=== PATIENT | female | born 1950 ===

== ENCOUNTER 2022-05-10 15:22 | Inpatient (IN) | payer OTHER ==
--- NOTE | 2022-05-10 19:18 | R.PREADM ---
PRE-ADMISSION SCREENING FORM SCREENING DATE AND TIME 05/10/2022 08:18 (CDT) ANTICIPATED REHAB ADMISSION DATE 05/11/2022 REFERRING FACILITY [facility] REFERRAL DATE AND TIME 05/09/2022 17:18 (CDT) REFERRAL ROOM# 213 M ACUTE ADMIT DATE 05/05/2022 Previous Rehabilitation(s): No. ACUTE PEDIATRIC PHYSICAL THERAPIST/DC HYDROPULPER Bharti Benitez ATTENDING PHYSICIAN Dr. Kadeem Reinoso REFERRING PHYSICIAN Dr. Kadeem Reinoso REHAB FACILITY [facility] CLINICAL LIAISON Nagi Kauffman PHYSICIAN REVIEWER Dr. Harsh Nava M.D. MR# [id number] NAME DEEPAK LEE ADDRESS [address] [place] [address] PHONE [facility] [id number] DATE OF 1950 AGE 71 SSN# [id number] GENDER female MARITAL STATUS white ADMIT FROM 02 - [facility] LIVING SETTING 01 - Home (private home/apt. board/care, assisted living, skilled nursing, transitional living) HOME TYPE AND DETAILS Type of home: single family house # of levels in the residence: 1 # of steps within the residence: 0 # of steps to enter the residence: 1 PRE-HOSPITAL LIVING WITH Family/Relatives FAMILY SUPPORT [employer] PHONE PRIMARY FAMILY CONTACT ON ADM.? no IS PRIMARY FAMILY CONTACT AUTH. REP.? no PHONE 1ST CONTACT ON ADM. no IS 1ST CONTACT AUTH. REP.? no PHONE 2ND CONTACT ON ADM.? no PATIENT EMPLOYMENT STATUS Retired (for age) PATIENT EMPLOYER No Employer PAYOR INFORMATION: 1ST PAYOR NAME Abdirahman Medicare 1ST PAYOR PHONE 1ST PAYOR INJURY/ILLNESS DUE TO ACCIDENT? No ANOTHER CONSTITUTION PARTY RESPONSIBLE? No PRIMARY REHAB/ACUTE DIAGNOSIS: Acute diastolic (congestive) heart failure (I50.31) ONSET DATE 05/05/2022 REHAB IMPAIRMENT CATEGORY (MACY): 14 Cardiac does NOT meet 60% rule PRIMARY DIAGNOSIS-RELATED SURGERIES: No surgeries related to the primary diagnosis were performed. COMORBID REHAB/ACUTE DIAGNOSES: - Tier 3 Morbid (severe) obesity due to excess calories (E66.01) - Non-Tiered Cellulitis of unspecified part of limb (L03.119) Acute diastolic (congestive) heart failure (I50.31) Lymphedema, not elsewhere classified (I89.0) Essential (primary) hypertension (I10) Constipation, unspecified (K59.00) Acute pulmonary edema (J81.0) Unspecified open wound, unspecified lower leg, initial encounter (J44.921W) Obstructive sleep apnea (adult) (pediatric) (G47.33) INTERVENTIONS: - CHF Daily weights will be obtained Regular assessment of patient vitals. Monitoring of patient symptoms and medications to be administered as per physician order. - Lymphedema Manual Lymphatic drainage to be performed. Use of daily short stretch compression wraps to reduce volume of LEs. Monitoring of condition and medications administered as per physician order - Cellulitis Daily monitoring of involved area. Medicate as indicated by physician - HTN Blood pressure will be regularly assessed and medications administered as per physician recommendatio ns. - LE Wounds Daily wound dressing changes. Maintaining a clean healthy environment to promote wound healing Monitoring for signs and symptoms of infection. - Pulmonary Edema Regular vitals checks Assessment of lung sounds Chest X-Rays as warranted Monitoring of condition and medications administered as per physician. - Weakness Daily therapy services to enhance patient's functional strength and abilities. - Constipation Monitor and manage appropriately via conservative and medications as needed. RISK FOR COMPLICATIONS: - Pain Clinical staff will assess patient's pain level every shift per protocol to monitor for pain manageme nt effectiveness Educate patient on pain management strategies - Skin Breakdown pt currently has multiple wounds on body that require management to prevent infection Nursing will assess skin daily using assessment tool and will place on Skin Breakdown Precautions as Indicated per protocol - UTI Monitor for frequency, burning, discomfort, or incontinence - Falls Educated pt on fall prevention strategies to reduce/eliminate fall risk Patient will be evaluated for Fall Precautions and will be placed on Fall Precautions as indicated pe r protocol. - DVT Administer anti-coagulants as indicated by physician and monitor for effectiveness. Mobility training and regular exercise - Infection antibiotic therapy as indicated by physician pt has multiple LE wounds, which require daily wound dressing changes Monitoring of wounds for signs and symptoms of infection SUMMARY OF ACUTE HOSPITALIZATION: Pt. is a 71 yo Right-handed white female. On 05/05/2022 she was admitted to [facility] with diagnosis Acute diastolic (c ongestive) heart failure (I50.31). Her impairment category is Cardiac 09 - Cardiac Disorders (09). Pre-morbidly, Pt. was independent/mod-I in Locomotion, Safety Awareness, Social Cognition, Balance, T ransfers Control, Self-Care, Sphincter Control, and Communication; and she had good Endurance. Currently, she has deficits of Locomotion, Balance, Transfers Control, Sphincter Control, Self-Care, and Endurance. Pt. is now referred to [facility] for acute in-patient rehabilitation in order to maximize patient's functional independence in activities of daily living, strength, ROM, and mobi lity. Patient has realistic goal of being discharged at assistance level Isela-to-sup to reside at Home with Family/Relatives. PAST MEDICAL HISTORY Acute diastolic (congestive) heart failure (I50.31) Acute pulmonary edema (J81.0) Cellulitis of unspecified part of limb (L03.119) Constipation, unspecified (K59.00) Essential (primary) hypertension (I10) Lymphedema, not elsewhere classified (I89.0) Morbid (severe) obesity due to excess calories (E66.01) Obstructive sleep apnea (adult) (pediatric) (G47.33) Unspecified open wound, unspecified lower leg, initial encounter (S70.743E) PAST SURGICAL HISTORY: Appendectomy Cholecystectomy Hysterectomy MEDICATION ALLERGIES: No Known Drug Allergies (NKDA) ENVIRONMENTAL ALLERGIES: - Substance Allergies None Known - Other Allergies None Known CODE STATUS: Full code WEIGHT/HEIGHT/BMI: WEIGHT 419 lbs HEIGHT 5' 6" BMI 67.6 DIET: - Diet Type Regular - Diet - Solid Texture Regular - Diet - Liquid Texture Regular - Tube Feed N/A SKIN DIAGRAM: Skin Tear on Left lower leg; extent - 3.2cm x 3.0cm; stage - NS(Not Stageable). Treatment - Change dr jaime daily after cleansing of wound with sterile saline. Skin Tear on Right lower leg; extent - 2.5cm x 2.5cm; stage - NS(Not Stageable). Treatment - Change d ressing daily after cleansing of wound with sterile saline. Skin Tear on Right lower leg; extent - 3.5cm x 3.5cm; stage - NS(Not Stageable). Treatment - Change d ressing daily after cleansing of wound with sterile saline. REVIEW OF SYSTEMS: - Gen Alert and awake Lying in bed No apparent distress Oriented to: person, time, and place - Vital Signs Temperature: 98.3 F SBP/DBP: 147/72 Pulse: 86 Resp: 20 Vital signs stable, afebrile - Skin Multiple skin tears on bilateral LEs - CVS RRR VITAL SIGNS Temperature: 98.3 F SBP/DBP: 147/72 Pulse: 86 Resp: 20 Vital signs stable, afebrile MEDICATIONS/TREATMENT: Other- See attached MAR (Medication Administration Record). CURRENT SPHINCTER CONTROL: Pre-hospital bladder status: unspecified # of bladder accidents in the last 7 days prior to screenin Pre-hospital bowel status: unspecified # of bowel accidents in the last 7 days prior to screenin Last Bowel Movement Date: 05/09/2022 CURRENT LOCOMOTION STATUS: distance walked 2 feet DETAILED CURRENT FUNCTIONAL STATUS: - Bladder accident frequency: UNK - No information - Bowel accident frequency: UNK - No information - Walking score based on distance walked: 0(N/A) score based on distance walked: 1(<=50ft) - Wheelchair score based on distance traveled: 0(N/A) QI SCORES: - Self-Care A. Eating 05-Setup or clean-up assistance B. Oral hygiene 05-Setup or clean-up assistance C. Toileting hygiene 02-Substantial/maximal assistance E. Shower/bathe self 02-Substantial/maximal assistance F. Upper body dressing 03-Partial/moderate assistance G. Lower body dressing 01-Dependent H. Putting on/taking off footwear 01-Dependent - Mobility A. Roll left and right 02-Substantial/maximal assistance B. Sit to lying 02-Substantial/maximal assistance C. Lying to sitting on side of bed 02-Substantial/maximal assistance D. Sit to stand 03-Partial/moderate assistance E. Chair/itp-hy-vyahm transfer 02-Substantial/maximal assistance F. Toilet transfer 02-Substantial/maximal assistance G. Car transfer 88-Not attempted due to medical condition or safety concerns I. Walk 10 feet 88-Not attempted due to medical condition or safety concerns J. Walk 50 feet with two turns 88-Not attempted due to medical condition or safety concerns K. Walk 150 feet 88-Not attempted due to medical condition or safety concerns L. Walking 10 feet on uneven surfaces 88-Not attempted due to medical condition or safety concerns M. 1 step (curb) 88-Not attempted due to medical condition or safety concerns N. 4 steps 88-Not attempted due to medical condition or safety concerns O. 12 steps 88-Not attempted due to medical condition or safety concerns P. Picking up object 88-Not attempted due to medical condition or safety concerns R. Wheel 50 feet with two turns S. Wheel 150 feet - Bladder and Bowel Bladder continence Bowel continence - Endurance Poor - Balance Poor - Safety Awareness Fair CURRENT FUNC. DEFICITS: Self-Care, Mobility, Endurance, Balance, and Safety Awareness HISTORY OF FALLS. HAS THE PATIENT HAD TWO OR MORE FALLS IN THE PAST YEAR OR ANY FALL WITH INJURY IN T HE PAST YEAR?: Unknown PRIOR SURGERY. DID THE PATIENT HAVE MAJOR SURGERY DURING THE 100 DAYS PRIOR TO ADMISSION?: No THERAPY NOTES FROM ACUTE CARE: Attached. SPECIAL NEEDS: - Safety Concerns Skin breakdown precautions needed due to skin breakdown risk PATIENT NEEDS ACTIVE AND ONGOING THERAPEUTIC INTERVENTION OF MULTIPLE THERAPY DISCIPLINES, INCLUDING: - Dietary and Nutrition Adequate Nutrition. Nutritional Education. Nutritional Supplements. - Occupational Therapy Cognitive Retraining. Patient needs Occupational Therapy for a daily minimum of 1.5 hours at least 5 out of 7 days, to improve Activities of Daily Living, including: Eating, Grooming, Bathing, Dressing, Toileting, Toilet Transfers, Community Reintegration, Higher functional activities, Adaptive Equipme nt, Splinting, Household Tasks, and Other activities as determined. Visual Perceptual Training. - Speech Therapy Cognitive Training. Expressive Language Skills. Memory Strategies. Patient needs Speech Therapy for a daily minimum of 0 hours at least 0 out of 0 days, to improve: Swallowing, Cognition, Language Skill s, and Compensatory Strategies. Receptive Language Skills. Speech Intelligibility Training. - Physical Therapy Patient needs Physical Therapy for a daily minimum of 1.5 hours at least 5 out of 7 days, to improve: Mobility, Strengthening, Transfers, Stretching, ROM, Endurance, Ability to manage stairs, Gait, and Balance. PATIENT NEEDS CLOSE MEDICAL SUPERVISION BY A REHABILITATION PHYSICIAN FOR: Coordination of Treatment Team Medical and Co-Morbidity Management DVT Management Bowel and Bladder Management Wound Care Respiratory/Airway Management Pain Management PATIENT REQUIRES 24X7 REHAB NURSING FOR MEDICAL AND FUNCTIONAL MGT. OF THE FOLLOWING DEFICITS: Disease Management Medication Management Patient requires 24x7 Rehabilitation Nursing for: Pain Issues, Identifying and preventing risk factor s, Monitoring and reporting current medical conditions, Assisting with ambulation and transfer, Chilango ting with all ADL-s, Teaching patients about disease process and medications, Family teaching, Provid ing safe environment, Bowel and Bladder Issues, Skin Integrity, and Medication Management Patient/Family Education Providing Safe Environment Skin Integrity PATIENT REQUIRES INTENSIVE, COORDINATED INTERDISCIPLINARY APPROACH TO REHAB: Arranging Home Equipment/Services Discharge Planning Family Intervention/Training Patient needs Dietary and Nutrition Services for: Adequate Nutrition, Nutritional Supplements, and Nu tritional Education Patient needs Fire Protection Specialist and/or Case Management for: Discharge Planning, Arranging Home Equipmen t or Services, and Family Interventions Fire Protection Specialist/Case Management PATIENT REHAB POTENTIAL: Sara LEE is able and expected to receive 3 hours of individualized therapy daily on at least 5 of ev emili 7 days Sara LEE'anh prognosis for significant practical improvement within a reasonable period of time appear s Good Expected level of measurable improvement will be of a practical value to Sara LEE's functional capac ity or adaptations to impairments Has a viable Discharge Plan Medically appropriate; condition is sufficiently stable to participate in intensive rehab program DISCHARGE PLAN: - Estimated Length of Stay (days) 10. - Consensus on plan Discharge plan has been discussed with primary caregiver. Patient/Family is in agreement with the glendy n. Primary caregiver is in agreement with the plan. - Patient/Family Goals Return home independently. - Planned Living Setting Upon Discharge Home, to live with Family/Relatives. Transitional Living. RECOMMENDED CARE LEVEL: IRF RECOMMENDATION DETAILS: Recommended Admission to Comprehensive Rehabilitation Program to Increase Functional [place] SCREENER'S COMPLETENESS CONFIRMATION: - Screening Confirmation The patient data collection on this preadmission screening form is finished PHYSICIANS REVIEW AND ADMISSION DETERMINATION Admit - Based on my review of the Pre-Admission Screening results, in my medical judgment and experie nce, I concur with the findings and recommend admission to [facility], as this patient requires an IRF level of care. SIGNATURE PANEL: Rod Mill Tender - [electronically] signed by Nagi Kauffman PT on 05/10/2022 at 16:37 (CDT) Clinical Liaison - [electronically] signed by Dr. Harsh Nava M.D. on 05/10/2022 at 19:18 (CDT) Physician Reviewer - [electronically] signed by Dr. Harsh Nava M.D. on 05/10/2022 at 19:18 (CDT )
[2022-05-11 03:36] LABS: Urine Appearance Clear (Clear); Urine Bilirubin Negative (Negative); Urine Blood Negative (Negative); Urine Color Yellow (Yellow); Urine Glucose Negative (Negative); Urine Protein Negative (Negative); Urine Specific Gravity 1.015 (1.005-1.030); Urine Urobilinogen 0.2 mg/dL (0.2-1.0); Urine pH 6.5 (5.0-7.0)
[2022-05-11 03:48] LABS: Urine Amorphous Sediment 1+ /HPF (NONE SEEN); Urine Bacteria 20-50 /HPF (<20); Urine Mucus 1+ /HPF (NONE SEEN); Urine RBC <5 /HPF (NONE SEEN)
[2022-05-11 07:33] LABS: Absolute Lymphocytes (CBC) 0.8 K/uL (0.7-4.9); Hematocrit 31.5 % (36.0-45.0); Lymphocytes % 12.3 % (15.3-44.8); MCV 94.7 fL (80-100); MPV 7.7 fL (7.6-11.3); RBC Red Blood Cell Count 3.33 M/uL (3.86-4.86)
[2022-05-11 07:50] LABS: Magnesium 2.3 mg/dL (1.8-2.4); Potassium 3.7 mmol/L (3.5-5.1); Prealbumin 9.2 mg/dL (20-40)
[2022-05-11] MEDS ORDERED: CODEINE 30MG/APAP 300MG TAB PO SCH (08:00)
[2022-05-11] MEDS: ASCORBIC ACID 500 MG TABLET PO SCH ×2 (08:00→20:37)
[2022-05-11] MEDS: MULTIVIT W/ MINERAL TAB PO SCH (08:43)
[2022-05-11] MEDS: AMOX/K CLAV 875 MG TAB PO SCH ×2 (08:43→20:37)
[2022-05-11] MEDS: FAMOTIDINE 20 MG TAB PO SCH (08:43)
[2022-05-11] MEDS: ISOSORBIDE MONO SR 30 MG TAB PO SCH (08:44)
[2022-05-11] MEDS: APIXABAN 5 MG TABLET PO SCH ×2 (08:44→20:37)
[2022-05-11] MEDS: ASPIRIN EC 81 MG TAB PO SCH (08:44)
[2022-05-11] MEDS: METOPROLOL XL 25 MG TAB PO SCH (08:48)
[2022-05-11] MEDS: MONTELUKAST 10 MG TAB PO SCH (08:48)
[2022-05-11] MEDS: CETIRIZINE HCL 5 MG TABLET PO PRN (08:48)
[2022-05-11] MEDS: POTASSIUM CL SA 10 MEQ TAB PO SCH (08:49)
[2022-05-11] MEDS: MUPIROCIN 2% OINT 22GM TUBE TOP SCH ×2 (08:50→20:37)
[2022-05-11] MEDS: NYSTATIN PWDR 100000 UNIT/GM TOP SCH ×2 (08:50→20:37)
[2022-05-11] MEDS: LINEZOLID 600 MG TAB PO SCH ×2 (08:51→20:36)
[2022-05-11] MEDS ORDERED: FUROSEMIDE 40 MG TABLET PO SCH (09:00)
[2022-05-11 12:26] LABS: Blood Gas Oxyhemoglobin 91.9 % (94-97); Blood O2 Saturation 94.5 % (92-98.5)
--- NOTE | 2022-05-11 12:51 | RAD REPORT ---
EXAM DESCRIPTION: Kelsi Single View05/11/2022 12:16 pm CLINICAL HISTORY: Chest pain COMPARISON: 2016 FINDINGS: Lungs are mildly hazy. The heart is normal size IMPRESSION: Lungs are mildly hazy. Mild bilateral pneumonia suspected. Probably less likely the hazi ness is secondary to overlying soft tissue
--- NOTE | 2022-05-11 14:43 | P.HP ---
Certification for Inpatient Patient admitted to: Inpatient With expected LOS: >2 Midnights Practitioner: I am a practitioner with admitting privileges, knowledge of patient current condition, hospital course, and medical plan of care. Services: Services provided to patient in accordance with Admission requirements found in Title 42 Section 412.3 of the Code of Federal Regulations Patient History Date of Service: 05/11/22 Reason for admission: WEAKNESS History of Present Illness: SHE WENT TO [facility] FOR CHRONIC LYMPHEDEMA. THEY SENT HER HER FOR REHAB. SHE DOES NOT HAVE ANY ACUTE COMPLIANTS. SHE WAS FOUND TO HAVE COVID ON ADMISSION HERE. SHE DOESNOT KNOW WHAT WAS OVER THERE. I HAVE NOT SEEN HER FOR MORE THAN A YEAR BEFORE TODAY. Allergies Latex, Natural Rubber Allergy (Intermediate, Verified 05/11/22 01:27) Rash meperidine [From Demerol] Allergy (Intermediate, Verified 03/13/16 21:56) Hives/Rash Home medications list reviewed: Yes Home Medications: Nebivolol HCl [Bystolic] 5 mg PO BEDTIME 03/13/16 Olmesartan/Hydrochlorothiazide [Benicar Hct 40-25 mg Tablet] 40 mg PO DAILY 03/13/16 Furosemide [Lasix*] 20 mg PO DAILY PRN #30 tab 03/15/16 Etodolac [Lodine Xl] 500 mg PO DAILY PRN 06/19/16 Multivitamin [Daily Multivitamin] 1 each PO DAILY 06/19/16 - Past Medical/Surgical History Has patient received pneumonia vaccine in the past: Yes Diabetic: No -: HTN -: osteoarthritis -: LYMPHEDEMA -: Morbid obesity -: Diastolic Dysfunction -: seasonal allergies -: cholecystectomy -: hysterectomy -: fibroid tumor removal -: appendectomy - Family History Father -: Cancer Notes: prostate Mother -: Other (see notes) Notes: infected wound on her lower back - Social History Smoking Status: Never smoker Alcohol use: No CD- Drugs: No Caffeine use: Yes Place of Residence: Home Physical Examination - Vital Signs Temperature: 97.4 F Blood Pressure: 142/73 Pulse: 105 Respirations: 18 Pulse Ox (%): 93 - Physical Exam General: Mild distress, Obese HEENT: Atraumatic, PERRLA, Mucous membr. moist/pink, EOMI, Sclerae nonicteric Neck: Supple, 2+ carotid pulse no bruit, No LAD, Without JVD or thyroid abnormality Respiratory: Clear to auscultation bilaterally, Normal air movement Cardiovascular: Regular rate/rhythm, Normal S1 S2, Edema (SEVERE LYMPHEDEMA.) Gastrointestinal: Normal bowel sounds, No tenderness Musculoskeletal: No tenderness Integumentary: No rashes Neurological: Normal gait, Normal speech, Normal strength at 5/5 x4 extr, Normal tone, Normal affect Lymphatics: No axilla or inguinal lymphadenopathy - Studies Laboratory Data (last 24 hrs) 05/11/22 07:08: Sodium 142, Potassium 3.7, BUN 19 H, Creatinine 0.98, Glucose 98, Magnesium 2.3 05/11/22 07:08: WBC 6.4, Hgb 10.3 L, Hct 31.5 L, Plt Count 210 Assessment and Plan - Problems (Diagnosis) (1) Hypercapnemia Current Visit: Yes Status: Chronic Plan: NEED TO REDUCE CO2 BUT WILL BE DIFFICULT SHE IS MORBIDLY OBESE. (2) Lymphedema Current Visit: Yes Status: Acute (3) Pneumonia due to COVID-19 virus Current Visit: Yes Status: Acute Plan: CONSULT DR. BURKETT. MAY NEED COVID RX. PROGNOSIS GUARDED. NOT SURE WHY SHE IS ON TWO ABX. WILL FIND OUT. - Advance Directives Does patient have a Living Will: No Does patient have a Durable POA for Healthcare: No
[2022-05-11 16:03] LABS: Blood Gas Oxyhemoglobin 80.7 % (94-97); Blood O2 Saturation 82.9 % (92-98.5)
--- NOTE | 2022-05-11 16:17 | P.CNS ---
Date of Consult: 05/11/22 Reason for Consult: Hypoxemia hypercapnia coronavirus positive Chief Complaint: Respiratory failure History of Present Illness: Patient is 71 years of age was transferred from [facility] she has chronic lymphedema with episodic cellulitis feels a little weak was diuresed patient was found to be positive for coronavirus and also hypoxic and hypercapnic denies any previous history of pulmonary complaints has never smoked no prior history of obstructive sleep apnea Allergies Latex, Natural Rubber Allergy (Intermediate, Verified 05/11/22 15:34) Rash meperidine [From Demerol] Allergy (Intermediate, Verified 05/11/22 15:34) Hives/Rash Home Medications: Nebivolol HCl [Bystolic] 5 mg PO BEDTIME 03/13/16 Olmesartan/Hydrochlorothiazide [Benicar Hct 40-25 mg Tablet] 40 mg PO DAILY 03/13/16 Furosemide [Lasix*] 20 mg PO DAILY PRN #30 tab 03/15/16 Etodolac [Lodine Xl] 500 mg PO DAILY PRN 06/19/16 Multivitamin [Daily Multivitamin] 1 each PO DAILY 06/19/16 - Past Medical/Surgical History Diabetic: No -: HTN -: osteoarthritis -: LYMPHEDEMA -: Morbid obesity -: Diastolic Dysfunction -: seasonal allergies -: cholecystectomy -: hysterectomy -: fibroid tumor removal -: appendectomy - Family History Father Medical History: Cancer Notes: prostate Mother Medical History: Other (see notes) Notes: infected wound on her lower back - Social History Smoking Status: Never smoker Alcohol use: No CD- Drugs: No Caffeine use: Yes Place of Residence: Home Review of Systems 10-point ROS is otherwise unremarkable Integumentary: As per HPI Physical Examination Temp Pulse Resp BP Pulse Ox 97.4 F 103 H 18 133/65 93 05/11/22 14:47 05/11/22 15:49 05/11/22 14:47 05/11/22 15:49 05/11/22 14:47 General: Alert, In no apparent distress, Oriented x3 HEENT: Atraumatic Neck: Supple Respiratory: Clear to auscultation bilaterally, Diminished Cardiovascular: Normal S1 S2, Edema (Gross lymphedema of lower extremities) Laboratory Data (last 24 hrs) 05/11/22 07:08: Sodium 142, Potassium 3.7, BUN 19 H, Creatinine 0.98, Glucose 98, Magnesium 2.3 05/11/22 07:08: WBC 6.4, Hgb 10.3 L, Hct 31.5 L, Plt Count 210 - Problems (1) Chronic respiratory failure with hypoxia and hypercapnia Current Visit: Yes Status: Acute Plan: Post likely patient has obesity hypoventilation syndrome he denies any symptoms of obstructive sleep apnea no prior history of pulmonary complaints he is never smoked patient's bicarbonate is elevated however hypercapnia may be secondary to elevated bicarbonate suspect is secondary to aggressive diuresis I doubt if she has coronavirus pneumonia. Loop diuretics probably benefit from an outpatient sleep study to see if she qualifies for CPAP or BiPAP no treatment for coronavirus necessary
--- NOTE | 2022-05-11 19:43 | R.HP ---
HISTORY AND PHYSICAL FACILITY: [facility] ENCOUNTER DATE AND TIME: 05/11/2022 19:37 (CDT) MR#: [id number] NAME DEEPAK LEE ADDRESS: [address] [place] [address] CITY: [place]IP [address] PHONE: DATE OF : 1950 AGE: 71 SSN# [id number] GENDER: Female MARITAL STATUS White PRE-HOSPITAL LIVING SETTING 01 - Home (private home/apt. board/care, assisted living, snf, transitional living) PRE-HOSPITAL LIVING WITH Family/Relatives ENCOUNTER PHYSICIAN: Dr. Harsh Nava M.D. REFERRING DOCTOR: Dr. Kadeem Reinoso DATE OF ADMISSION: 05/11/2022 00:12 (CDT) REFERRING FACILITY [facility] HOME TYPE AND DETAILS: Type of home: single family house # of levels in the residence: 1 # of steps within the residence: 0 # of steps to enter the residence: 1 ONSET DATE: 05/05/2022 PRIMARY DIAGNOSIS-RELATED SURGERIES: No surgeries related to the primary diagnosis were performed. SECONDARY/COMORBID DIAGNOSES (TIERED): - Tier 3 Morbid (severe) obesity due to excess calories (E66.01) - Non-Tiered Cellulitis of unspecified part of limb (L03.119) Acute diastolic (congestive) heart failure (I50.31) Lymphedema, not elsewhere classified (I89.0) Essential (primary) hypertension (I10) Constipation, unspecified (K59.00) Acute pulmonary edema (J81.0) Unspecified open wound, unspecified lower leg, initial encounter (T98.445K) Obstructive sleep apnea (adult) (pediatric) (G47.33) HISTORY OF PRESENT ILLNESS (HPI): Pt. is a 71 yo Right-handed white female. On 05/05/2022 she was admitted to [facility] with diagnosis Acute diastolic (c ongestive) heart failure (I50.31). Her impairment category is Cardiac 09 - Cardiac Disorders (09). Pre-morbidly, Pt. was independent/mod-I in Locomotion, Safety Awareness, Social Cognition, Balance, T ransfers Control, Self-Care, Sphincter Control, and Communication; and she had good Endurance. Currently, she has deficits of Locomotion, Balance, Transfers Control, Sphincter Control, Self-Care, and Endurance. Pt. is now referred to [facility] for acute in-patient rehabilitation in order to maximize patient's functional independence in activities of daily living, strength, ROM, and mobi lity. Patient has realistic goal of being discharged at assistance level Isela-to-sup to reside at Home with Family/Relatives. MEDICATION ALLERGIES: No Known Drug Allergies (NKDA) ENVIRONMENTAL ALLERGIES: - Substance Allergies None Known - Other Allergies None Known PAST MEDICAL HISTORY: Acute diastolic (congestive) heart failure (I50.31) Acute pulmonary edema (J81.0) Cellulitis of unspecified part of limb (L03.119) Constipation, unspecified (K59.00) Essential (primary) hypertension (I10) Lymphedema, not elsewhere classified (I89.0) Morbid (severe) obesity due to excess calories (E66.01) Obstructive sleep apnea (adult) (pediatric) (G47.33) Unspecified open wound, unspecified lower leg, initial encounter (E19.302A) PAST SURGICAL HISTORY: Appendectomy Cholecystectomy Hysterectomy SOCIAL HISTORY: - Home Living Family/Relatives REVIEW OF SYSTEMS: - Gen No Chills Fatigue No Fever - Eyes No Double Vision No itchiness - ENMT No Difficulty Swallowing - CVS Chest Discomfort No Chest Pain Fatigue No Weight Gain - Resp Cough No Shortness of Breath - GI Continent No Abdominal Pain No Constipation No Diarrhea - Continent No Kidney Pain No Painful Urination No Urinary Urgency - MSK No Joint Pain No Muscle Cramps Stiffness - Skin No Itching No Rash No Suspicious Lesions - Neuro Coordination Difficulty No Difficulty with Concentration No Memory Loss No Seizures Weakness - Psych No Anxiety No Depression No HIV Exposure No Persistent Infections No Seasonal Allergies - Endo No Cold/Heat Intolerance No Excessive Hunger No Excessive Thirst No Excessive Urination PHYSICAL EXAM - Gen Alert and awake Lying in bed No apparent distress Oriented to: person, time, and place - Skin Lower leg wound Normacephalic - Eyes No abnormalities - ENMT No abnormalities - Neck No abnormalities - CVS RRR - Chest Mildly decreased breath sounds bilaterally. - Resp Course lungs bilaterally - Abd + bowel sounds - GI Soft Deferred - No abnormalities - Ext No significant edema - MSK 4+/5 weakness in both lower extremities. - Neuro No focal deficits VITAL SIGNS Temperature: 97.4 F SBP/DBP: 133/65 Pulse: 103 Resp: 18 NURSING: - Shower allowing shower ACTIVITIES OOB only with supervision QI SCORES: - Self-Care A. Eating 05-Setup or clean-up assistance B. Oral hygiene 05-Setup or clean-up assistance C. Toileting hygiene 02-Substantial/maximal assistance E. Shower/bathe self 02-Substantial/maximal assistance F. Upper body dressing 03-Partial/moderate assistance G. Lower body dressing 01-Dependent H. Putting on/taking off footwear 01-Dependent - Mobility A. Roll left and right 02-Substantial/maximal assistance B. Sit to lying 02-Substantial/maximal assistance C. Lying to sitting on side of bed 02-Substantial/maximal assistance D. Sit to stand 03-Partial/moderate assistance E. Chair/rue-jb-agfqd transfer 02-Substantial/maximal assistance F. Toilet transfer 02-Substantial/maximal assistance G. Car transfer 88-Not attempted due to medical condition or safety concerns I. Walk 10 feet 88-Not attempted due to medical condition or safety concerns J. Walk 50 feet with two turns 88-Not attempted due to medical condition or safety concerns K. Walk 150 feet 88-Not attempted due to medical condition or safety concerns L. Walking 10 feet on uneven surfaces 88-Not attempted due to medical condition or safety concerns M. 1 step (curb) 88-Not attempted due to medical condition or safety concerns N. 4 steps 88-Not attempted due to medical condition or safety concerns O. 12 steps 88-Not attempted due to medical condition or safety concerns P. Picking up object 88-Not attempted due to medical condition or safety concerns R. Wheel 50 feet with two turns S. Wheel 150 feet - Bladder and Bowel Bladder continence Bowel continence - Endurance Poor - Balance Poor - Safety Awareness Fair CURRENT FUNC. DEFICITS: Self-Care, Mobility, Endurance, Balance, and Safety Awareness MEDICATIONS: - Other See attached MAR (Medication Administration Record) ASSESSMENT: Pt. is a 71 yo Right-handed white female.On 05/05/2022 she was admitted to [facility] with diagnosis Acute diastolic (congestive) heart failure (I50.31).Her impairment category is Cardiac 09 - Cardiac Disorders (09).Pre-morbidly, Pt. was independent/mod-I in Locomotion, Safety A wareness, Social Cognition, Balance, Transfers Control, Self-Care, Sphincter Control, and Communicati on; and she had good Endurance.Currently, she has deficits of Locomotion, Balance, Transfers Control, Sphincter Control, Self-Care, and Endurance.Pt. is now referred to [facility] for acute in-patient rehabilitation in order to maximize patient's functional independence in activi ties of daily living, strength, ROM, and mobility.- Rehab Goal Patient has realistic goal of being discharged at assistance level Isela-to-sup to reside at Home with Family/Relatives. - Physical Therapy Gait dysfunction - to improve, our physical therapists will perform initial evaluation of pt's status upon admission and devise an individualized program for Gait Training, and Wheel Chair mobility Inability to transfer - to improve, our physical therapists will perform initial evaluation of pt's s tatus upon admission and devise an individualized program for Bed mobility Need for home safety evaluation - to improve, our physical therapists will perform initial evaluation of pt's status upon admission and devise an individualized program for Home Evaluation Need in caregiver upon discharge - to improve, our physical therapists will perform initial evaluatio n of pt's status upon admission and devise an individualized program for Caregiver Training New precaution - to improve, our physical therapists will perform initial evaluation of pt's status u adrianne admission and devise an individualized program for Patient precaution education Edema - to improve, our physical therapists will perform initial evaluation of pt's status upon admi ssion and devise an individualized program for Elevation Training, and Lymphedema Therapy Having wound - to improve, our physical therapists will perform initial evaluation of pt's status up on admission and devise an individualized program for Wound Care Poor balance - to improve, our physical therapists will perform initial evaluation of pt's status upo n admission and devise an individualized program for Balance Training Poor endurance - to improve, our physical therapists will perform initial evaluation of pt's status u adrianne admission and devise an individualized program for Endurance Training Weakness - to improve, our physical therapists will perform initial evaluation of pt's status upon ad mission and devise an individualized program for Aquatic Therapy, Neuromuscular Reeducation, and Stre ngthening Achieving independence - to improve, our physical therapists will perform initial evaluation of pt's status upon admission and devise an individualized program for Community Reintegration Activities - Occupational Therapy ADL deficits - to improve, our occupation therapists will perform initial evaluation of pt's status u adrianne admission and devise an individualized program for Bathing, Bed mobility, Community Reintegration , Cooking, Dressing, Eating, Fine Motor Skills, Grooming, Homemaking, Kitchen Mobility, Laundry, Reema ent Education, Safety Awareness, Splinting - Positioning, Transfers(Toilet, Tub, Shower), and Wheel C hair Management Need for pediatric acute care unit nurse - to improve, our occupation therapists will perform initial evaluation of pt's s tatus upon admission and devise an individualized program for Caregiver Training Weakness - to improve, our occupation therapists will perform initial evaluation of pt's status upon admission and devise an individualized program for Aquatic Therapy, Balance, Endurance, UE ROM, and U E strengthening MEDICAL PLAN: - Diet Type Start Regular - Diet - Liquid Texture Start Regular - Tube Feed Start N/A - Other See attached MAR (Medication Administration Record) - Diet - Solid Texture Regular - Shower shower DISCHARGE PLAN: - Estimated Length of Stay (days) 10. - Consensus on plan Discharge plan has been discussed with primary caregiver. Patient/Family is in agreement with the glendy n. Primary caregiver is in agreement with the plan. - Patient/Family Goals Return home independently. - Planned Living Setting Upon Discharge Home, to live with Family/Relatives. Transitional Living. SIGNATURE PANEL: (CDT)
--- NOTE | 2022-05-11 19:45 | PAPE ---
POST ADMISSION PHYSICIAN EVALUATION PATIENT: [facility] MR# [id number] REFERRING DOCTOR Dr. Kadeem Reinoso EVALUATION DATE AND TIME 05/11/2022 19:43 (CDT) NAME DEEPAK LEE DATE OF 1950 AGE 71 PHONE N# [id number] GENDER female EVALUATING PHYSICIAN Dr. Harsh Nava M.D. ADMISSION DIAGNOSIS: Acute diastolic (congestive) heart failure (I50.31) ONSET DATE 05/05/2022 SECONDARY/COMORBID DIAGNOSES TIERED: - Tier 3 Morbid (severe) obesity due to excess calories (E66.01) - Non-Tiered Cellulitis of unspecified part of limb (L03.119) Acute diastolic (congestive) heart failure (I50.31) Lymphedema, not elsewhere classified (I89.0) Essential (primary) hypertension (I10) Constipation, unspecified (K59.00) Acute pulmonary edema (J81.0) Unspecified open wound, unspecified lower leg, initial encounter (D21.380T) Obstructive sleep apnea (adult) (pediatric) (G47.33) POST-ADMISSION FUNCTIONAL/MEDICAL STATUS: - Bladder Same accident frequency: UNK - No information - Bowel Same accident frequency: UNK - No information - Walking Same score based on distance walked: 0(N/A) Same score based on distance walked: 1(<=50ft) - Wheelchair Same score based on distance traveled: 0(N/A) STATUS CHANGE EVALUATION: No change in Functional or Medical Status is identified compared with Pre-Admission screening. PATIENT NEEDS CLOSE MEDICAL SUPERVISION BY A REHABILITATION PHYSICIAN FOR: Coordination of Treatment Team Medical and Co-Morbidity Management DVT Management Bowel and Bladder Management Wound Care Respiratory/Airway Management Pain Management PATIENT REQUIRES 24X7 REHAB NURSING FOR MEDICAL AND FUNCTIONAL MGT. OF THE FOLLOWING DEFICITS: Disease Management Medication Management Patient requires 24x7 Rehabilitation Nursing for: Pain Issues, Identifying and preventing risk factor s, Monitoring and reporting current medical conditions, Assisting with ambulation and transfer, Chilango ting with all ADL-s, Teaching patients about disease process and medications, Family teaching, Provid ing safe environment, Bowel and Bladder Issues, Skin Integrity, and Medication Management Patient/Family Education Providing Safe Environment Skin Integrity PATIENT REQUIRES INTENSIVE, COORDINATED INTERDISCIPLINARY APPROACH TO REHAB: Arranging Home Equipment/Services Discharge Planning Family Intervention/Training Patient needs Dietary and Nutrition Services for: Adequate Nutrition, Nutritional Supplements, and Nu tritional Education Patient needs Jewelry Repairer and/or Case Management for: Discharge Planning, Arranging Home Equipmen t or Services, and Family Interventions Jewelry Repairer/Case Management LIST OF IDENTIFIED AND POTENTIAL PROBLEMS: Alteration in leisure activities Bladder, Incontinence Blood Pressure, Hypertension/hypotension Issues Bowel, Constipation Bowel, Incontinence Infection, Actual or Potential Mobility Impaired Pain, Alteration in Comfort Self Care Deficit Skin Integrity, Actual or Potential Urinary Tract Infection (UTI), Actual or Potential RISK FOR COMPLICATIONS - Pain Clinical staff will assess patient's pain level every shift per protocol to monitor for pain manageme nt effectiveness. Educate patient on pain management strategies. - Skin Breakdown pt currently has multiple wounds on body that require management to prevent infection. Nursing will a ssess skin daily using assessment tool and will place on Skin Breakdown Precautions as Indicated per protocol. - UTI Monitor for frequency, burning, discomfort, or incontinence. - Falls Educated pt on fall prevention strategies to reduce/eliminate fall risk. Patient will be evaluated fo r Fall Precautions and will be placed on Fall Precautions as indicated per protocol. - DVT Administer anti-coagulants as indicated by physician and monitor for effectiveness. Mobility training and regular exercise. - Infection antibiotic therapy as indicated by physician. pt has multiple LE wounds, which require daily wound dr essing changes. Monitoring of wounds for signs and symptoms of infection. INTERVENTIONS - CHF Daily weights will be obtained. Regular assessment of patient vitals. Monitoring of patient symptoms and medications to be administered as per physician order. - Lymphedema Manual Lymphatic drainage to be performed. Use of daily short stretch compression wraps to reduce vol ume of LEs. Monitoring of condition and medications administered as per physician order. - Cellulitis Daily monitoring of involved area. Medicate as indicated by physician. - HTN Blood pressure will be regularly assessed and medications administered as per physician recommendatio ns. - LE Wounds Daily wound dressing changes. Maintaining a clean healthy environment to promote wound healing. Monit oring for signs and symptoms of infection. - Pulmonary Edema Regular vitals checks. Assessment of lung sounds. Chest X-Rays as warranted. Monitoring of condition and medications administered as per physician. - Weakness Daily therapy services to enhance patient's functional strength and abilities. - Constipation Monitor and manage appropriately via conservative and medications as needed. PATIENT COULD BE AT RISK FOR COMPLICATIONS FROM ADVERSE MEDICAL CONDITIONS DUE TO HIS/HER COMORBIDITI ES AND THE RIGORS OF THE INTENSIVE REHABILLITATION PROGRAM. METHODS OR INTERVENTIONS TO AVOID COMPLIC ATIONS INCLUDE: - Deep Vein Thrombosis (DVT) Prophylaxis therapy for prevention . Sequential Compression Device (SCD). TE D Hose. - Bleeding Assess lab values and manage abnormalities. Nursing to teach precautions for anti-coagulation therapy . Wound to be assessed every shift. - Infection Clinical staff to assess and manage the signs and symptoms of infection including fever, redness, war mth, etc. - Urinary Tract Infection - Falls Patient will be evaluated for Fall Precautions and will be placed on Fall Precautions as indicated pe r protocol. - Skin Breakdown Nursing will assess skin daily using assessment tool and will place on Skin Breakdown Precautions as indicated per protocol. - Pain Clinical staff may employ non-medication methods such as massage, distraction, decrease stimulus, etc . as needed. Clinical staff will assess patient's pain level every shift per protocol to assess and e nsure pain management effectiveness. Medications will be given and the pain level re-assessed. PRELIMINARY PLAN OF CARE: - Physical Therapy Patient needs Physical Therapy for a daily minimum of 1.5 hours at least 5 out of 7 days, to improve: Mobility, Strengthening, Transfers, Stretching, ROM, Endurance, Ability to manage stairs, Gait, and Balance. - Speech Therapy Patient needs Speech Therapy for a daily minimum of 0.5 hours at least 5 out of 7 days, to improve: S wallowing, Cognition, Language Skills, and Compensatory Strategies. - Rehabilitation Nursing Patient requires 24x7 Rehabilitation Nursing for: Pain Issues, Identifying and preventing risk factor s, Monitoring and reporting current medical conditions, Assisting with ambulation and transfer, Chilango ting with all ADL-s, Teaching patients about disease process and medications, Family teaching, Provid ing safe environment, Bowel and Bladder Issues, Skin Integrity, and Medication Management. Patient needs Jewelry Repairer and/or Case Management for: Discharge Planning, Arranging Home Equipmen t or Services, and Family Interventions. - Dietary and Nutrition Services Patient needs Dietary and Nutrition Services for: Adequate Nutrition, Nutritional Supplements, and Nu tritional Education. - Occupational Therapy Patient needs Occupational Therapy for a daily minimum of 1.5 hours at least 5 out of 7 days, to impr ove Activities of Daily Living, including: Eating, Grooming, Bathing, Dressing, Toileting, Toilet Tra nsfers, Community Reintegration, Higher functional activities, Adaptive Equipment, Splinting, Househo ld Tasks, and Other activities as determined. QI SCORES: - Self-Care A. Eating 05-Setup or clean-up assistance B. Oral hygiene 05-Setup or clean-up assistance C. Toileting hygiene 02-Substantial/maximal assistance E. Shower/bathe self 02-Substantial/maximal assistance F. Upper body dressing 03-Partial/moderate assistance G. Lower body dressing 01-Dependent H. Putting on/taking off footwear 01-Dependent - Mobility A. Roll left and right 02-Substantial/maximal assistance B. Sit to lying 02-Substantial/maximal assistance C. Lying to sitting on side of bed 02-Substantial/maximal assistance D. Sit to stand 03-Partial/moderate assistance E. Chair/uqe-tj-aydth transfer 02-Substantial/maximal assistance F. Toilet transfer 02-Substantial/maximal assistance G. Car transfer 88-Not attempted due to medical condition or safety concerns I. Walk 10 feet 88-Not attempted due to medical condition or safety concerns J. Walk 50 feet with two turns 88-Not attempted due to medical condition or safety concerns K. Walk 150 feet 88-Not attempted due to medical condition or safety concerns L. Walking 10 feet on uneven surfaces 88-Not attempted due to medical condition or safety concerns M. 1 step (curb) 88-Not attempted due to medical condition or safety concerns N. 4 steps 88-Not attempted due to medical condition or safety concerns O. 12 steps 88-Not attempted due to medical condition or safety concerns P. Picking up object 88-Not attempted due to medical condition or safety concerns R. Wheel 50 feet with two turns S. Wheel 150 feet - Bladder and Bowel Bladder continence Bowel continence - Endurance Poor - Balance Poor - Safety Awareness Fair POTENTIAL FUNCTIONAL GOALS FOR PATIENT TO ACHIEVE BY DISCHARGE: - Safety Precaution Patient will remain free from falls or injury at time of discharge. - Bed Mobility Patient will perform bed mobility at 4-Helio level of assistance. - Transfers Patient will complete transfers from bed to chair at 4-Helio level of assistance. - Mobility Patient will ambulate 150 ft with 4-Helio level of assistance with RW. PATIENT REHAB POTENTIAL Sara HUERTANAVKELLY is able and expected to receive 3 hours of individualized therapy daily on at least 5 emili 7 days Sara LEE's prognosis for significant practical improvement within a reasonable period of time appear s Good Expected level of measurable improvement will be of a practical value to Sara LEE's functional capac ity or adaptations to impairments Has a viable Discharge Plan Medically appropriate; condition is sufficiently stable to participate in intensive rehab program DISCHARGE PLAN: - Estimated Length of Stay (days) 10. - Consensus on plan Discharge plan has been discussed with primary caregiver. Patient/Family is in agreement with the glendy n. Primary caregiver is in agreement with the plan. - Patient/Family Goals Return home independently. - Planned Living Setting Upon Discharge Home, to live with Family/Relatives. Transitional Living. CONCLUSION ON REHABILITATION NECESSITY: I have evaluated patient's pre-admission functional status and, comparing it to the patient's post-ad mission functional status now, I conclude that the pre-admission assessment was accurate. Patient's c ondition on admission supports the medical necessity of admission to [facility]. It is safe to proceed with patient's therapy program. SIGNATURE PANEL: (CDT)
[2022-05-11] MEDS: SPIRONOLACTONE 25 MG TABLET PO SCH (20:37)
[2022-05-12] MEDS ORDERED: APIXABAN 5 MG TABLET PO SCH (08:00)
[2022-05-12] MEDS: LINEZOLID 600 MG TAB PO SCH (08:28)
[2022-05-12] MEDS: ISOSORBIDE MONO SR 30 MG TAB PO SCH (08:28)
[2022-05-12] MEDS: POTASSIUM CL SA 10 MEQ TAB PO SCH (08:28)
[2022-05-12] MEDS: MULTIVIT W/ MINERAL TAB PO SCH (08:29)
[2022-05-12] MEDS: AMOX/K CLAV 875 MG TAB PO SCH ×2 (08:30→20:24)
[2022-05-12] MEDS: MONTELUKAST 10 MG TAB PO SCH (08:30)
[2022-05-12] MEDS: SPIRONOLACTONE 25 MG TABLET PO SCH ×2 (08:30→20:25)
[2022-05-12] MEDS: FAMOTIDINE 20 MG TAB PO SCH (08:30)
[2022-05-12] MEDS: ASCORBIC ACID 500 MG TABLET PO SCH ×2 (08:31→20:25)
[2022-05-12] MEDS: ASPIRIN EC 81 MG TAB PO SCH (08:31)
[2022-05-12] MEDS: METOPROLOL XL 25 MG TAB PO SCH (08:32)
[2022-05-12] MEDS: MUPIROCIN 2% OINT 22GM TUBE TOP SCH ×2 (09:36→20:24)
[2022-05-12] MEDS: NYSTATIN PWDR 100000 UNIT/GM TOP SCH ×2 (09:40→20:24)
[2022-05-12] MEDS: GUAIFENESIN/DM 5 ML UCUP PO PRN (10:36)
--- NOTE | 2022-05-12 11:19 | P.PN ---
Subjective Date of Service: 05/12/22 Chief Complaint: Respiratory failure, LEGS INFECTION, LYPHEDEMA, MORBID OBEISTY Subjective: Improving DEEPAK IS MORBIDLY OBESE LADY WITH SEVERE LYMPHEDEMA WHERE THE THIGHS AND LEGS ARE HUGE IN SIZE AND SHE GOES TO ER WHEN SHE THINKS SHE HAS NEED OF LASIX. UN FORTUNATELY LASIX IS GIVING RISE TO HYPERCARBIA AND SHE HAS WORSENED CO2 FROM IT. SHE ENDS UP IN [facility] EVERY FEW MONTHS. Review of Systems 10-point ROS is otherwise unremarkable General: As per HPI Respiratory: Shortness of Breath Physical Examination - Vital Signs Temperature: 97.6 F Blood Pressure: 124/62 Pulse: 96 Respirations: 16 Pulse Ox (%): 92 - Physical Exam General: Mild distress, Obese HEENT: Atraumatic, PERRLA, EOMI Neck: Supple, JVD not distended Respiratory: Clear to auscultation bilaterally, Normal air movement Cardiovascular: Regular rate/rhythm, Normal S1 S2 Gastrointestinal: Normal bowel sounds, No tenderness Musculoskeletal: No tenderness Integumentary: Erythema (NONE AT THIS POINT. 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 AGREE WITH STOPPING LASIX AND COMBINATION OF DIAMOX AND SPIRONOLACTONE. IN THE PAST SHE GOES TO ER AND CHANGES OVER TO LASIX. I HAVE TRIIED THIS BEFORE. THIS TIME I AM GOING TO RAISE SPIRONOLACONE TO 100 MG DAILY. (2) Lymphedema Current Visit: Yes Status: Acute (3) Pneumonia due to COVID-19 virus Current Visit: Yes Status: Acute Plan: CONSULT DR. BURKETT. MAY NEED COVID RX. PROGNOSIS GUARDED. NOT SURE WHY SHE IS ON TWO ABX. WILL FIND OUT. (4) Cellulitis, leg Current Visit: Yes Status: Acute Plan: LEGS SHOW NO SIGN OF CELLULITIS SHE HAS ALREADY IMPROVED WELL. I WILL STOP ZYVOX FROM THE BEGINING SHE SAYS IT WAS NOT THAT RED. I SUSPECT THEY OVERTREATED WTIH VANCO AND ZOSYN. AUGMENTIN FOR A FEW DAYS SHOULD BE ENOUGH. (5) Dyspnea Current Visit: Yes Status: Chronic Plan: THERE IS NO CLEAR SIGN OF PE. SHE COULD NOT GET ON VQ TABLE OR CT TABLE WITH THE BODY HABITUS. I WILL REDUCE ELIQUIS TO 5 MG BID SHE DOES NOT NEED THERAPEUTIC DOSE. STOP ASPIRIN.
[2022-05-12] MEDS: CODEINE 30MG/APAP 300MG TAB PO PRN (12:08)
[2022-05-12] MEDS: CETIRIZINE HCL 5 MG TABLET PO PRN (12:41)
--- NOTE | 2022-05-12 16:08 | P.PN ---
Subjective Date of Service: 05/12/22 Chief Complaint: Respiratory failure, LEGS INFECTION, LYPHEDEMA, MORBID OBEISTY Subjective: Improving (Patient is doing better edema is declining) Review of Systems Unremarkable Physical Examination - Vital Signs Temperature: 97.6 F Blood Pressure: 124/62 Pulse: 96 Respirations: 16 Pulse Ox (%): 92 - Physical Exam General: Alert, In no apparent distress, Oriented x3 Cardiovascular: Edema - Studies Medications List Reviewed: Yes Assessment And Plan - Current Problems (Diagnosis) (1) Chronic respiratory failure with hypoxia and hypercapnia Current Visit: Yes Status: Acute Plan: Patient is doing better edema is declining he has hypoxic hypercapnic respiratory failure which is chronic and need an outpatient sleep study in the meanwhile collect correct hypokalemia avoid loop diuretics continue with spironolactone and Diamox ordered chemistry today
[2022-05-12] MEDS: acetaZOLAMIDE 250 MG TAB PO SCH (16:32)
[2022-05-12 16:56] LABS: Potassium 4.3 mmol/L (3.5-5.1)
[2022-05-13] MEDS: CETIRIZINE HCL 5 MG TABLET PO PRN (00:34)
[2022-05-13] MEDS: GUAIFENESIN/DM 5 ML UCUP PO PRN (00:34)
[2022-05-13] MEDS: APIXABAN 5 MG TABLET PO SCH ×2 (08:55→20:53)
[2022-05-13] MEDS: MONTELUKAST 10 MG TAB PO SCH (08:56)
[2022-05-13] MEDS: NYSTATIN PWDR 100000 UNIT/GM TOP SCH ×2 (08:56→20:53)
[2022-05-13] MEDS: MUPIROCIN 2% OINT 22GM TUBE TOP SCH ×2 (08:56→20:53)
[2022-05-13] MEDS: AMOX/K CLAV 875 MG TAB PO SCH ×2 (08:56→20:52)
[2022-05-13] MEDS: METOPROLOL XL 25 MG TAB PO SCH (08:57)
[2022-05-13] MEDS: ASCORBIC ACID 500 MG TABLET PO SCH ×2 (08:57→20:53)
[2022-05-13] MEDS: MULTIVIT W/ MINERAL TAB PO SCH (08:57)
[2022-05-13] MEDS: acetaZOLAMIDE 250 MG TAB PO SCH (08:57)
[2022-05-13] MEDS: ISOSORBIDE MONO SR 30 MG TAB PO SCH (08:59)
[2022-05-13] MEDS: FAMOTIDINE 20 MG TAB PO SCH (09:00)
[2022-05-13] MEDS: SPIRONOLACTONE 25 MG TABLET PO SCH ×2 (10:35→20:52)
[2022-05-13] MEDS: CODEINE 30MG/APAP 300MG TAB PO PRN (13:33)
--- NOTE | 2022-05-13 18:18 | R.PN ---
PROGRESS NOTES ENCOUNTER DATE AND TIME: 05/13/2022 18:11 (CDT) NAME DEEPAK LEE DATE OF : 1950 DATE OF ADMISSION: 05/11/2022 00:12 (CDT) Acute diastolic (congestive) heart failure (I50.31)CHIEF COMPLAINT: Diastolic heart failure SUBJECTIVE: Pt denied any Shortness of Breath. Pt denied any depression. Ambulated 5' with a rolling walker and minimum assistance. She has a positive and then negative covid-19 test. CBC with diff is remarkable for low Hgb of 10.3, Co2 is elevated to 42 and prealbumin is low at 9.2. Chest x-ray shows mild bilateral pneumonia. She is followed by Dr. Becerril and is on Augmentin. VITAL SIGNS Temperature: 97.0 F SBP/DBP: 120/58 Pulse: 83 Resp: 16 MEDICATION ALLERGIES: No Known Drug Allergies (NKDA) ENVIRONMENTAL ALLERGIES: - Substance Allergies None Known - Other Allergies None Known NURSING: - Shower allowing shower ACTIVITIES OOB only with supervision THERAPIES: - Dietary and Nutrition Adequate Nutrition. Nutritional Education. Nutritional Supplements. - Occupational Therapy Cognitive Retraining. Patient needs Occupational Therapy for a daily minimum of 1.5 hours at least 5 out of 7 days, to improve Activities of Daily Living, including: Eating, Grooming, Bathing, Dressing, Toileting, Toilet Transfers, Community Reintegration, Higher functional activities, Adaptive Equipme nt, Splinting, Household Tasks, and Other activities as determined. Visual Perceptual Training. - Speech Therapy Cognitive Training. Expressive Language Skills. Memory Strategies. Patient needs Speech Therapy for a daily minimum of 0 hours at least 0 out of 0 days, to improve: Swallowing, Cognition, Language Skill s, and Compensatory Strategies. Receptive Language Skills. Speech Intelligibility Training. - Physical Therapy Patient needs Physical Therapy for a daily minimum of 1.5 hours at least 5 out of 7 days, to improve: Mobility, Strengthening, Transfers, Stretching, ROM, Endurance, Ability to manage stairs, Gait, and Balance. PHYSICAL EXAM - Gen Alert and awake Lying in bed No apparent distress Oriented to: person, time, and place - Skin Lower leg wound Normacephalic - Eyes No abnormalities - ENMT No abnormalities - Neck No abnormalities - CVS RRR - Chest Mildly decreased breath sounds bilaterally. - Resp Course lungs bilaterally - Abd + bowel sounds - GI Soft Deferred - No abnormalities - Ext No significant edema - MSK 4+/5 weakness in both lower extremities. - Neuro No focal deficits ASSESSMENT: Pt. is a 71 yo Right-handed white female.On 05/05/2022 she was admitted to [facility] with diagnosis Acute diastolic (congestive) heart failure (I50.31).Her impairment category is Cardiac 09 - Cardiac Disorders (09).Pre-morbidly, Pt. was independent/mod-I in Locomotion, Safety A wareness, Social Cognition, Balance, Transfers Control, Self-Care, Sphincter Control, and Communicati on; and she had good Endurance.Currently, she has deficits of Locomotion, Balance, Transfers Control, Sphincter Control, Self-Care, and Endurance.Pt. is now referred to [facility] for acute in-patient rehabilitation in order to maximize patient's functional independence in activi ties of daily living, strength, ROM, and mobility.- Rehab Goal Patient has realistic goal of being discharged at assistance level Isela-to-sup to reside at Home with Family/Relatives. MDM/PLAN: - Physical Therapy Gait dysfunction - to improve, our physical therapists will perform initial evaluation of pt's statu s upon admission and devise an individualized program for Gait Training, and Wheel Chair mobility Inability to transfer - to improve, our physical therapists will perform initial evaluation of pt's status upon admission and devise an individualized program for Bed mobility Need for home safety evaluation - to improve, our physical therapists will perform initial evaluatio n of pt's status upon admission and devise an individualized program for Home Evaluation Need in caregiver upon discharge - to improve, our physical therapists will perform initial evaluati on of pt's status upon admission and devise an individualized program for Caregiver Training New precaution - to improve, our physical therapists will perform initial evaluation of pt's status upon admission and devise an individualized program for Patient precaution education Edema - to improve, our physical therapists will perform initial evaluation of pt's status upon admis butch and devise an individualized program for Elevation Training, and Lymphedema Therapy Having wound - to improve, our physical therapists will perform initial evaluation of pt's status upo n admission and devise an individualized program for Wound Care Poor balance - to improve, our physical therapists will perform initial evaluation of pt's status up on admission and devise an individualized program for Balance Training Poor endurance - to improve, our physical therapists will perform initial evaluation of pt's status upon admission and devise an individualized program for Endurance Training Weakness - to improve, our physical therapists will perform initial evaluation of pt's status upon a dmission and devise an individualized program for Aquatic Therapy, Neuromuscular Reeducation, and Str engthening Achieving independence - to improve, our physical therapists will perform initial evaluation of pt's status upon admission and devise an individualized program for Community Reintegration Activities - Occupational Therapy ADL deficits - to improve, our occupation therapists will perform initial evaluation of pt's status upon admission and devise an individualized program for Bathing, Bed mobility, Community Reintegratio n, Cooking, Dressing, Eating, Fine Motor Skills, Grooming, Homemaking, Kitchen Mobility, Laundry, Pat ient Education, Safety Awareness, Splinting - Positioning, Transfers(Toilet, Tub, Shower), and Wheel Chair Management Need for managed care liaison - to improve, our occupation therapists will perform initial evaluation of pt's status upon admission and devise an individualized program for Caregiver Training Weakness - to improve, our occupation therapists will perform initial evaluation of pt's status upon admission and devise an individualized program for Aquatic Therapy, Balance, Endurance, UE ROM, and UE strengthening - Other See attached MAR (Medication Administration Record) - Diet Type Continue Regular - Diet - Liquid Texture Continue Regular - Tube Feed Continue N/A - Diet - Solid Texture Continue Regular - Shower allowing shower FUNCTIONAL STATUS: UPDATED AT WEEKLY TEAM CONFERENCE - Bladder Same accident frequency: UNK - No information - Bowel Same accident frequency: UNK - No information - Walking Same score based on distance walked: 0(N/A) Same score based on distance walked: 1(<=50ft) - Wheelchair Same score based on distance traveled: 0(N/A) FUNCTIONAL STATUS: - Self-Care A. Eating Isela B. Grooming sup C. Bathing sup D. Dressing - Upper sup E. Dressing - Lower modA F. Toileting Helio - Sphincter Control G. Bladder control Isela H. Bowel control Ind - Transfers Control I. Bed/Chair/Wheelchair Helio J. Toilet Helio K. Tub/Shower sup - Locomotion L. Walk/Wheelchair (B) modA M. Stairs maxA - Communication N. Comprehension (B) Ind O. Expression (B) Ind - Social Cognition P. Social Interaction Ind Q. Problem Solving Isela R. Memory Isela - Endurance Poor - Balance Fair - Safety Awareness Fair QI SCORES: - Self-Care A. Eating 05-Setup or clean-up assistance B. Oral hygiene 05-Setup or clean-up assistance C. Toileting hygiene 02-Substantial/maximal assistance E. Shower/bathe self 02-Substantial/maximal assistance F. Upper body dressing 03-Partial/moderate assistance G. Lower body dressing 01-Dependent H. Putting on/taking off footwear 01-Dependent - Mobility A. Roll left and right 02-Substantial/maximal assistance B. Sit to lying 02-Substantial/maximal assistance C. Lying to sitting on side of bed 02-Substantial/maximal assistance D. Sit to stand 03-Partial/moderate assistance E. Chair/[id number] transfer 02-Substantial/maximal assistance F. Toilet transfer 02-Substantial/maximal assistance G. Car transfer 88-Not attempted due to medical condition or safety concerns I. Walk 10 feet 88-Not attempted due to medical condition or safety concerns J. Walk 50 feet with two turns 88-Not attempted due to medical condition or safety concerns K. Walk 150 feet 88-Not attempted due to medical condition or safety concerns L. Walking 10 feet on uneven surfaces 88-Not attempted due to medical condition or safety concerns M. 1 step (curb) 88-Not attempted due to medical condition or safety concerns N. 4 steps 88-Not attempted due to medical condition or safety concerns O. 12 steps 88-Not attempted due to medical condition or safety concerns P. Picking up object 88-Not attempted due to medical condition or safety concerns R. Wheel 50 feet with two turns S. Wheel 150 feet - Bladder and Bowel Bladder continence Bowel continence - Endurance Poor - Balance Poor - Safety Awareness Fair CURRENT FUNC. DEFICITS: Self-Care, Mobility, Endurance, Balance, and Safety Awareness SIGNATURE PANEL: (CDT)
--- NOTE | 2022-05-13 21:43 | P.PN ---
Subjective Date of Service: 05/13/22 Chief Complaint: Respiratory failure, LEGS INFECTION, LYPHEDEMA, MORBID OBEISTY Subjective: Improving DEEPAK IS MORBIDLY OBESE LADY WITH SEVERE LYMPHEDEMA WHERE THE THIGHS AND LEGS ARE HUGE IN SIZE AND SHE GOES TO ER WHEN SHE THINKS SHE HAS NEED OF LASIX. UN FORTUNATELY LASIX IS GIVING RISE TO HYPERCARBIA AND SHE HAS WORSENED CO2 FROM IT. SHE ENDS UP IN [place] EVERY FEW MONTHS. SHE FEELS A LITTLE BETTRER. NO PAIN. Review of Systems 10-point ROS is otherwise unremarkable General: Weakness Physical Examination - Vital Signs Temperature: 97 F Blood Pressure: 105/65 Pulse: 79 Respirations: 16 Pulse Ox (%): 93 - Physical Exam General: Oriented x3, Mild distress, Obese HEENT: Atraumatic, PERRLA, EOMI Neck: Supple, JVD not distended Respiratory: Clear to auscultation bilaterally, Normal air movement Cardiovascular: Regular rate/rhythm, Normal S1 S2 Gastrointestinal: Normal bowel sounds, No tenderness Musculoskeletal: No tenderness Integumentary: No rashes Neurological: Normal speech, Normal tone, Normal affect Lymphatics: No axilla or inguinal lymphadenopathy - Studies Laboratory Data (last 24 hrs) 05/13/22 04:16: Sodium 142, Potassium 4.0, BUN 22 H, Creatinine 0.99, Glucose 94 Microbiology Data (last 24 hrs): 05/11/22 00:30 Clean Catch Urine [place] Count - Final <10,000 CFU/ML. 05/11/22 00:30 Clean Catch Urine - Final MIXED ONI. Medications List Reviewed: Yes Assessment And Plan - Current Problems (Diagnosis) (1) Hypercapnemia Current Visit: Yes Status: Chronic Plan: NEED TO REDUCE CO2 BUT WILL BE DIFFICULT SHE IS MORBIDLY OBESE. AGREE WITH STOPPING LASIX AND COMBINATION OF DIAMOX AND SPIRONOLACTONE. IN THE PAST SHE GOES TO ER AND CHANGES OVER TO LASIX. I HAVE TRIIED THIS BEFORE. THIS TIME I AM GOING TO RAISE SPIRONOLACONE TO 100 MG DAILY. (2) Lymphedema Current Visit: Yes Status: Acute (3) Pneumonia due to COVID-19 virus Current Visit: Yes Status: Acute Plan: CONSULT DR. BURKETT. MAY NEED COVID RX. PROGNOSIS GUARDED. NOT SURE WHY SHE IS ON TWO ABX. WILL FIND OUT. (4) Cellulitis, leg Current Visit: Yes Status: Acute Plan: LEGS SHOW NO SIGN OF CELLULITIS SHE HAS ALREADY IMPROVED WELL. I WILL STOP ZYVOX FROM THE BEGINING SHE SAYS IT WAS NOT THAT RED. I SUSPECT THEY OVERTREATED WTIH VANCO AND ZOSYN. AUGMENTIN FOR A FEW DAYS SHOULD BE ENOUGH. (5) Dyspnea Current Visit: Yes Status: Chronic Plan: THERE IS NO CLEAR SIGN OF PE. SHE COULD NOT GET ON VQ TABLE OR CT TABLE WITH THE BODY HABITUS. I WILL REDUCE ELIQUIS TO 5 MG BID SHE DOES NOT NEED THERAPEUTIC DOSE. STOP ASPIRIN. IMPROVED SOME. BICARB IS LOWER.
[2022-05-14] MEDS: APIXABAN 5 MG TABLET PO SCH ×2 (09:00→20:59)
[2022-05-14] MEDS: ISOSORBIDE MONO SR 30 MG TAB PO SCH (09:08)
[2022-05-14] MEDS: SPIRONOLACTONE 25 MG TABLET PO SCH ×2 (09:08→20:59)
[2022-05-14] MEDS: MONTELUKAST 10 MG TAB PO SCH (09:09)
[2022-05-14] MEDS: AMOX/K CLAV 875 MG TAB PO SCH ×2 (09:09→20:58)
[2022-05-14] MEDS: acetaZOLAMIDE 250 MG TAB PO SCH (09:09)
[2022-05-14] MEDS: ASCORBIC ACID 500 MG TABLET PO SCH ×2 (09:10→20:59)
[2022-05-14] MEDS: MULTIVIT W/ MINERAL TAB PO SCH (09:10)
[2022-05-14] MEDS: METOPROLOL XL 25 MG TAB PO SCH (09:10)
[2022-05-14] MEDS: MUPIROCIN 2% OINT 22GM TUBE TOP SCH ×2 (09:10→20:58)
[2022-05-14] MEDS: FAMOTIDINE 20 MG TAB PO SCH (09:10)
[2022-05-14] MEDS: GUAIFENESIN/DM 5 ML UCUP PO PRN (09:11)
[2022-05-14] MEDS: NYSTATIN PWDR 100000 UNIT/GM TOP SCH ×2 (09:12→20:58)
--- NOTE | 2022-05-14 17:53 | R.PN ---
PROGRESS NOTES ENCOUNTER DATE AND TIME: 05/14/2022 17:44 (CDT) NAME DEEPAK LEE DATE OF : 1950 DATE OF ADMISSION: 05/11/2022 00:12 (CDT) Acute diastolic (congestive) heart failure (I50.31)CHIEF COMPLAINT: Diastolic heart failure SUBJECTIVE: Pt denied any Shortness of Breath. Pt denied any depression. Bed mobility done with max assistance. O2 sat 86 to 88% with physical activity and 1 L of O2. Recover s to 92-94% with 2-3 minutes of rest. She has a positive and then negative covid-19 test. CBC with diff is remarkable for low Hgb of 10.3, Co2 is elevated to 42 and prealbumin is low at 9.2. Chest x-ray shows mild bilateral pneumonia. She is followed by Dr. Becerril and is on Augmentin. VITAL SIGNS Temperature: 97.0 F SBP/DBP: 136/58 Pulse: 100 Resp: 16 MEDICATION ALLERGIES: No Known Drug Allergies (NKDA) ENVIRONMENTAL ALLERGIES: - Substance Allergies None Known - Other Allergies None Known NURSING: - Shower allowing shower ACTIVITIES OOB only with supervision THERAPIES: - Dietary and Nutrition Adequate Nutrition. Nutritional Education. Nutritional Supplements. - Occupational Therapy Cognitive Retraining. Patient needs Occupational Therapy for a daily minimum of 1.5 hours at least 5 out of 7 days, to improve Activities of Daily Living, including: Eating, Grooming, Bathing, Dressing, Toileting, Toilet Transfers, Community Reintegration, Higher functional activities, Adaptive Equipme nt, Splinting, Household Tasks, and Other activities as determined. Visual Perceptual Training. - Speech Therapy Cognitive Training. Expressive Language Skills. Memory Strategies. Patient needs Speech Therapy for a daily minimum of 0 hours at least 0 out of 0 days, to improve: Swallowing, Cognition, Language Skill s, and Compensatory Strategies. Receptive Language Skills. Speech Intelligibility Training. - Physical Therapy Patient needs Physical Therapy for a daily minimum of 1.5 hours at least 5 out of 7 days, to improve: Mobility, Strengthening, Transfers, Stretching, ROM, Endurance, Ability to manage stairs, Gait, and Balance. PHYSICAL EXAM - Gen Alert and awake Lying in bed No apparent distress Oriented to: person, time, and place - Skin Lower leg wound Normacephalic - Eyes No abnormalities - ENMT No abnormalities - Neck No abnormalities - CVS RRR - Chest Mildly decreased breath sounds bilaterally. - Resp Course lungs bilaterally - Abd + bowel sounds - GI Soft Deferred - No abnormalities - Ext No significant edema - MSK 4+/5 weakness in both lower extremities. - Neuro No focal deficits ASSESSMENT: Pt. is a 71 yo Right-handed white female.On 05/05/2022 she was admitted to [facility] with diagnosis Acute diastolic (congestive) heart failure (I50.31).Her impairment category is Cardiac 09 - Cardiac Disorders ().Pre-morbidly, Pt. was independent/mod-I in Locomotion, Safety A wareness, Social Cognition, Balance, Transfers Control, Self-Care, Sphincter Control, and Communicati on; and she had good Endurance.Currently, she has deficits of Locomotion, Balance, Transfers Control, Sphincter Control, Self-Care, and Endurance.Pt. is now referred to [facility] for acute in-patient rehabilitation in order to maximize patient's functional independence in activi ties of daily living, strength, ROM, and mobility.- Rehab Goal Patient has realistic goal of being discharged at assistance level Isela-to-sup to reside at Home with Family/Relatives. MDM/PLAN: - Physical Therapy Gait dysfunction - to improve, our physical therapists will perform initial evaluation of pt's statu s upon admission and devise an individualized program for Gait Training, and Wheel Chair mobility Inability to transfer - to improve, our physical therapists will perform initial evaluation of pt's status upon admission and devise an individualized program for Bed mobility Need for home safety evaluation - to improve, our physical therapists will perform initial evaluatio n of pt's status upon admission and devise an individualized program for Home Evaluation Need in caregiver upon discharge - to improve, our physical therapists will perform initial evaluati on of pt's status upon admission and devise an individualized program for Caregiver Training New precaution - to improve, our physical therapists will perform initial evaluation of pt's status upon admission and devise an individualized program for Patient precaution education Edema - to improve, our physical therapists will perform initial evaluation of pt's status upon admi ssion and devise an individualized program for Elevation Training, and Lymphedema Therapy Having wound - to improve, our physical therapists will perform initial evaluation of pt's status up on admission and devise an individualized program for Wound Care Poor balance - to improve, our physical therapists will perform initial evaluation of pt's status up on admission and devise an individualized program for Balance Training Poor endurance - to improve, our physical therapists will perform initial evaluation of pt's status upon admission and devise an individualized program for Endurance Training Weakness - to improve, our physical therapists will perform initial evaluation of pt's status upon a dmission and devise an individualized program for Aquatic Therapy, Neuromuscular Reeducation, and Str engthening Achieving independence - to improve, our physical therapists will perform initial evaluation of pt's status upon admission and devise an individualized program for Community Reintegration Activities - Occupational Therapy ADL deficits - to improve, our occupation therapists will perform initial evaluation of pt's status upon admission and devise an individualized program for Bathing, Bed mobility, Community Reintegratio n, Cooking, Dressing, Eating, Fine Motor Skills, Grooming, Homemaking, Kitchen Mobility, Laundry, Pat ient Education, Safety Awareness, Splinting - Positioning, Transfers(Toilet, Tub, Shower), and Wheel Chair Management Need for child care education coordinator - to improve, our occupation therapists will perform initial evaluation of pt's status upon admission and devise an individualized program for Caregiver Training Weakness - to improve, our occupation therapists will perform initial evaluation of pt's status upon admission and devise an individualized program for Aquatic Therapy, Balance, Endurance, UE ROM, and UE strengthening - Other See attached MAR (Medication Administration Record) - Diet Type Continue Regular - Diet - Liquid Texture Continue Regular - Tube Feed Continue N/A - Diet - Solid Texture Continue Regular - Shower allowing shower FUNCTIONAL STATUS: UPDATED AT WEEKLY TEAM CONFERENCE - Bladder Same accident frequency: UNK - No information - Bowel Same accident frequency: UNK - No information - Walking Same score based on distance walked: 0(N/A) Same score based on distance walked: 1(<=50ft) - Wheelchair Same score based on distance traveled: 0(N/A) FUNCTIONAL STATUS: - Self-Care A. Eating Isela B. Grooming sup C. Bathing sup D. Dressing - Upper sup E. Dressing - Lower modA F. Toileting Helio - Sphincter Control G. Bladder control Isela H. Bowel control Ind - Transfers Control I. Bed/Chair/Wheelchair Helio J. Toilet Helio K. Tub/Shower sup - Locomotion L. Walk/Wheelchair (B) modA M. Stairs maxA - Communication N. Comprehension (B) Ind O. Expression (B) Ind - Social Cognition P. Social Interaction Ind Q. Problem Solving Isela R. Memory Isela - Endurance Poor - Balance Fair - Safety Awareness Fair QI SCORES: - Self-Care A. Eating 05-Setup or clean-up assistance B. Oral hygiene 05-Setup or clean-up assistance C. Toileting hygiene 02-Substantial/maximal assistance E. Shower/bathe self 02-Substantial/maximal assistance F. Upper body dressing 03-Partial/moderate assistance G. Lower body dressing 01-Dependent H. Putting on/taking off footwear 01-Dependent - Mobility A. Roll left and right 02-Substantial/maximal assistance B. Sit to lying 02-Substantial/maximal assistance C. Lying to sitting on side of bed 02-Substantial/maximal assistance D. Sit to stand 03-Partial/moderate assistance E. Chair/urp-oc-[id number] transfer 02-Substantial/maximal assistance F. Toilet transfer 02-Substantial/maximal assistance G. Car transfer 88-Not attempted due to medical condition or safety concerns I. Walk 10 feet 88-Not attempted due to medical condition or safety concerns J. Walk 50 feet with two turns 88-Not attempted due to medical condition or safety concerns K. Walk 150 feet 88-Not attempted due to medical condition or safety concerns L. Walking 10 feet on uneven surfaces 88-Not attempted due to medical condition or safety concerns M. 1 step (curb) 88-Not attempted due to medical condition or safety concerns N. 4 steps 88-Not attempted due to medical condition or safety concerns O. 12 steps 88-Not attempted due to medical condition or safety concerns P. Picking up object 88-Not attempted due to medical condition or safety concerns R. Wheel 50 feet with two turns S. Wheel 150 feet - Bladder and Bowel Bladder continence Bowel continence - Endurance Poor - Balance Poor - Safety Awareness Fair CURRENT FUNC. DEFICITS: Self-Care, Mobility, Endurance, Balance, and Safety Awareness SIGNATURE PANEL: (CDT)
--- NOTE | 2022-05-14 21:46 | P.PN ---
Subjective Date of Service: 05/14/22 Chief Complaint: Respiratory failure, LEGS INFECTION, LYPHEDEMA, MORBID OBEISTY Subjective: Improving DEEPAK IS MORBIDLY OBESE LADY WITH SEVERE LYMPHEDEMA WHERE THE THIGHS AND LEGS ARE HUGE IN SIZE AND SHE GOES TO ER WHEN SHE THINKS SHE HAS NEED OF LASIX. UN FORTUNATELY LASIX IS GIVING RISE TO HYPERCARBIA AND SHE HAS WORSENED CO2 FROM IT. SHE ENDS UP IN [facility] [place] EVERY FEW MONTHS. SHE FEELS A LITTLE BETTRER. NO PAIN. Physical Examination - Vital Signs Temperature: 97.6 F Blood Pressure: 119/58 Pulse: 99 Respirations: 18 Pulse Ox (%): 95 - Physical Exam General: Mild distress, Obese HEENT: Atraumatic, PERRLA, EOMI Neck: Supple, JVD not distended Respiratory: Clear to auscultation bilaterally, Normal air movement Cardiovascular: Regular rate/rhythm, Normal S1 S2 Gastrointestinal: Normal bowel sounds, No tenderness Musculoskeletal: No tenderness Integumentary: No rashes Neurological: Normal speech, Normal tone, Normal affect Lymphatics: No axilla or inguinal lymphadenopathy - Studies Medications List Reviewed: Yes Assessment And Plan - Current Problems (Diagnosis) (1) Hypercapnemia Current Visit: Yes Status: Chronic Plan: NEED TO REDUCE CO2 BUT WILL BE DIFFICULT SHE IS MORBIDLY OBESE. AGREE WITH STOPPING LASIX AND COMBINATION OF DIAMOX AND SPIRONOLACTONE. IN THE PAST SHE GOES TO ER AND CHANGES OVER TO LASIX. I HAVE TRIIED THIS BEFORE. THIS TIME I AM GOING TO RAISE SPIRONOLACONE TO 100 MG DAILY. (2) Lymphedema Current Visit: Yes Status: Acute (3) Pneumonia due to COVID-19 virus Current Visit: Yes Status: Acute Plan: CONSULT DR. BURKETT. MAY NEED COVID RX. PROGNOSIS GUARDED. NOT SURE WHY SHE IS ON TWO ABX. WILL FIND OUT. (4) Cellulitis, leg Current Visit: Yes Status: Acute Plan: LEGS SHOW NO SIGN OF CELLULITIS SHE HAS ALREADY IMPROVED WELL. I WILL STOP ZYVOX FROM THE BEGINING SHE SAYS IT WAS NOT THAT RED. I SUSPECT THEY OVERTREATED WTIH VANCO AND ZOSYN. AUGMENTIN FOR A FEW DAYS SHOULD BE ENOUGH. (5) Dyspnea Current Visit: Yes Status: Chronic Plan: THERE IS NO CLEAR SIGN OF PE. SHE COULD NOT GET ON VQ TABLE OR CT TABLE WITH THE BODY HABITUS. I WILL REDUCE ELIQUIS TO 5 MG BID SHE DOES NOT NEED THERAPEUTIC DOSE. STOP ASPIRIN. IMPROVED SOME. BICARB IS LOWER.
[2022-05-14] MEDS: CODEINE 30MG/APAP 300MG TAB PO PRN (23:27)
[2022-05-15 05:06] LABS: Potassium 4.4 mmol/L (3.5-5.1)
[2022-05-15] MEDS: METOPROLOL XL 25 MG TAB PO SCH ×2 (08:00→12:31)
[2022-05-15] MEDS: ISOSORBIDE MONO SR 30 MG TAB PO SCH ×2 (08:00→12:32)
[2022-05-15] MEDS: AMOX/K CLAV 875 MG TAB PO SCH ×2 (08:04→20:46)
[2022-05-15] MEDS: MULTIVIT W/ MINERAL TAB PO SCH (08:04)
[2022-05-15] MEDS: SPIRONOLACTONE 25 MG TABLET PO SCH ×2 (08:05→20:46)
[2022-05-15] MEDS: acetaZOLAMIDE 250 MG TAB PO SCH (08:05)
[2022-05-15] MEDS: ASCORBIC ACID 500 MG TABLET PO SCH ×2 (08:05→20:46)
[2022-05-15] MEDS: FAMOTIDINE 20 MG TAB PO SCH (08:05)
[2022-05-15] MEDS: MONTELUKAST 10 MG TAB PO SCH (08:06)
[2022-05-15] MEDS: APIXABAN 5 MG TABLET PO SCH ×2 (08:06→20:46)
[2022-05-15] MEDS: MUPIROCIN 2% OINT 22GM TUBE TOP SCH ×2 (09:11→20:45)
[2022-05-15] MEDS: NYSTATIN PWDR 100000 UNIT/GM TOP SCH ×2 (09:11→20:46)
[2022-05-15] MEDS: GUAIFENESIN/DM 5 ML UCUP PO PRN ×2 (14:13→21:17)
[2022-05-15] MEDS: CODEINE 30MG/APAP 300MG TAB PO PRN (16:05)
--- NOTE | 2022-05-15 17:50 | R.PN ---
PROGRESS NOTES ENCOUNTER DATE AND TIME: 05/15/2022 17:43 (CDT) NAME DEEPAK LEE DATE OF : 1950 DATE OF ADMISSION: 05/11/2022 00:12 (CDT) Acute diastolic (congestive) heart failure (I50.31)CHIEF COMPLAINT: Diastolic heart failure SUBJECTIVE: Pt denied any Shortness of Breath. Pt denied any depression. Bed mobility done with max assistance. O2 sat drops to 82% with physical exertion. Recovers to 92-94% with 2-3 minutes of rest. She has a positive and then negative covid-19 test. CBC with diff is remarkable for low Hgb of 10.3, CO2 is elevated to 40 and prealbumin is low at 9.2. Chest x-ray shows mild bilateral pneumonia. She is followed by Dr. Becerril and is on Augmentin. VITAL SIGNS Temperature: 97.0 F SBP/DBP: 136/68 Pulse: 80 Resp: 16 MEDICATION ALLERGIES: No Known Drug Allergies (NKDA) ENVIRONMENTAL ALLERGIES: - Substance Allergies None Known - Other Allergies None Known NURSING: - Shower allowing shower ACTIVITIES OOB only with supervision THERAPIES: - Dietary and Nutrition Adequate Nutrition. Nutritional Education. Nutritional Supplements. - Occupational Therapy Cognitive Retraining. Patient needs Occupational Therapy for a daily minimum of 1.5 hours at least 5 out of 7 days, to improve Activities of Daily Living, including: Eating, Grooming, Bathing, Dressing, Toileting, Toilet Transfers, Community Reintegration, Higher functional activities, Adaptive Equipme nt, Splinting, Household Tasks, and Other activities as determined. Visual Perceptual Training. - Speech Therapy Cognitive Training. Expressive Language Skills. Memory Strategies. Patient needs Speech Therapy for a daily minimum of 0 hours at least 0 out of 0 days, to improve: Swallowing, Cognition, Language Skill s, and Compensatory Strategies. Receptive Language Skills. Speech Intelligibility Training. - Physical Therapy Patient needs Physical Therapy for a daily minimum of 1.5 hours at least 5 out of 7 days, to improve: Mobility, Strengthening, Transfers, Stretching, ROM, Endurance, Ability to manage stairs, Gait, and Balance. PHYSICAL EXAM - Gen Alert and awake Lying in bed No apparent distress Oriented to: person, time, and place - Skin Lower leg wound Normacephalic - Eyes No abnormalities - ENMT No abnormalities - Neck No abnormalities - CVS RRR - Chest Mildly decreased breath sounds bilaterally. - Resp Course lungs bilaterally - Abd + bowel sounds - GI Soft Deferred - No abnormalities - Ext No significant edema - MSK 4+/5 weakness in both lower extremities. - Neuro No focal deficits ASSESSMENT: Pt. is a 71 yo Right-handed white female.On 05/05/2022 she was admitted to [facility] with diagnosis Acute diastolic (congestive) heart failure (I50.31).Her impairment category is Cardiac 09 - Cardiac Disorders (09).Pre-morbidly, Pt. was independent/mod-I in Locomotion, Safety A wareness, Social Cognition, Balance, Transfers Control, Self-Care, Sphincter Control, and Communicati on; and she had good Endurance.Currently, she has deficits of Locomotion, Balance, Transfers Control, Sphincter Control, Self-Care, and Endurance.Pt. is now referred to [facility] for acute in-patient rehabilitation in order to maximize patient's functional independence in activi ties of daily living, strength, ROM, and mobility.- Rehab Goal Patient has realistic goal of being discharged at assistance level Isela-to-sup to reside at Home with Family/Relatives. MDM/PLAN: - Physical Therapy Gait dysfunction - to improve, our physical therapists will perform initial evaluation of pt's statu s upon admission and devise an individualized program for Gait Training, and Wheel Chair mobility Inability to transfer - to improve, our physical therapists will perform initial evaluation of pt's status upon admission and devise an individualized program for Bed mobility Need for home safety evaluation - to improve, our physical therapists will perform initial evaluatio n of pt's status upon admission and devise an individualized program for Home Evaluation Need in caregiver upon discharge - to improve, our physical therapists will perform initial evaluati on of pt's status upon admission and devise an individualized program for Caregiver Training New precaution - to improve, our physical therapists will perform initial evaluation of pt's status upon admission and devise an individualized program for Patient precaution education Edema - to improve, our physical therapists will perform initial evaluation of pt's status upon admi ssion and devise an individualized program for Elevation Training, and Lymphedema Therapy Having wound - to improve, our physical therapists will perform initial evaluation of pt's status up on admission and devise an individualized program for Wound Care Poor balance - to improve, our physical therapists will perform initial evaluation of pt's status up on admission and devise an individualized program for Balance Training Poor endurance - to improve, our physical therapists will perform initial evaluation of pt's status upon admission and devise an individualized program for Endurance Training Weakness - to improve, our physical therapists will perform initial evaluation of pt's status upon a dmission and devise an individualized program for Aquatic Therapy, Neuromuscular Reeducation, and Str engthening Achieving independence - to improve, our physical therapists will perform initial evaluation of pt's status upon admission and devise an individualized program for Community Reintegration Activities - Occupational Therapy ADL deficits - to improve, our occupation therapists will perform initial evaluation of pt's status upon admission and devise an individualized program for Bathing, Bed mobility, Community Reintegratio n, Cooking, Dressing, Eating, Fine Motor Skills, Grooming, Homemaking, Kitchen Mobility, Laundry, Pat ient Education, Safety Awareness, Splinting - Positioning, Transfers(Toilet, Tub, Shower), and Wheel Chair Management Need for home care specialist - to improve, our occupation therapists will perform initial evaluation of pt's status upon admission and devise an individualized program for Caregiver Training Weakness - to improve, our occupation therapists will perform initial evaluation of pt's status upon admission and devise an individualized program for Aquatic Therapy, Balance, Endurance, UE ROM, and UE strengthening - Other See attached MAR (Medication Administration Record) - Diet Type Continue Regular - Diet - Liquid Texture Continue Regular - Tube Feed Continue N/A - Diet - Solid Texture Continue Regular - Shower allowing shower FUNCTIONAL STATUS: UPDATED AT WEEKLY TEAM CONFERENCE - Bladder Same accident frequency: UNK - No information - Bowel Same accident frequency: UNK - No information - Walking Same score based on distance walked: 0(N/A) Same score based on distance walked: 1(<=50ft) - Wheelchair Same score based on distance traveled: 0(N/A) FUNCTIONAL STATUS: - Self-Care A. Eating Isela B. Grooming sup C. Bathing sup D. Dressing - Upper sup E. Dressing - Lower modA F. Toileting Helio - Sphincter Control G. Bladder control Isela H. Bowel control Ind - Transfers Control I. Bed/Chair/Wheelchair Helio J. Toilet Helio K. Tub/Shower sup - Locomotion L. Walk/Wheelchair (B) modA M. Stairs maxA - Communication N. Comprehension (B) Ind O. Expression (B) Ind - Social Cognition P. Social Interaction Ind Q. Problem Solving Isela R. Memory Isela - Endurance Poor - Balance Fair - Safety Awareness Fair QI SCORES: - Self-Care A. Eating 05-Setup or clean-up assistance B. Oral hygiene 05-Setup or clean-up assistance C. Toileting hygiene 02-Substantial/maximal assistance E. Shower/bathe self 02-Substantial/maximal assistance F. Upper body dressing 03-Partial/moderate assistance G. Lower body dressing 01-Dependent H. Putting on/taking off footwear 01-Dependent - Mobility A. Roll left and right 02-Substantial/maximal assistance B. Sit to lying 02-Substantial/maximal assistance C. Lying to sitting on side of bed 02-Substantial/maximal assistance D. Sit to stand 03-Partial/moderate assistance E. Chair/yoe-xp-fzluz transfer 02-Substantial/maximal assistance F. Toilet transfer 02-Substantial/maximal assistance G. Car transfer 88-Not attempted due to medical condition or safety concerns I. Walk 10 feet 88-Not attempted due to medical condition or safety concerns J. Walk 50 feet with two turns 88-Not attempted due to medical condition or safety concerns K. Walk 150 feet 88-Not attempted due to medical condition or safety concerns L. Walking 10 feet on uneven surfaces 88-Not attempted due to medical condition or safety concerns M. 1 step (curb) 88-Not attempted due to medical condition or safety concerns N. 4 steps 88-Not attempted due to medical condition or safety concerns O. 12 steps 88-Not attempted due to medical condition or safety concerns P. Picking up object 88-Not attempted due to medical condition or safety concerns R. Wheel 50 feet with two turns S. Wheel 150 feet - Bladder and Bowel Bladder continence Bowel continence - Endurance Poor - Balance Poor - Safety Awareness Fair CURRENT FUNC. DEFICITS: Self-Care, Mobility, Endurance, Balance, and Safety Awareness SIGNATURE PANEL: (CDT)
--- NOTE | 2022-05-15 21:48 | P.PN ---
Subjective Date of Service: 05/15/22 Chief Complaint: Respiratory failure, LEGS INFECTION, LYPHEDEMA, MORBID OBEISTY Subjective: Improving DEEPAK IS MORBIDLY OBESE LADY WITH SEVERE LYMPHEDEMA WHERE THE THIGHS AND LEGS ARE HUGE IN SIZE AND SHE GOES TO ER WHEN SHE THINKS SHE HAS NEED OF LASIX. UN FORTUNATELY LASIX IS GIVING RISE TO HYPERCARBIA AND SHE HAS WORSENED CO2 FROM IT. SHE ENDS UP IN [facility] EVERY FEW MONTHS. SHE FEELS A LITTLE BETTRER. NO PAIN. SHE IS BETTER BUT WEAK. NOT WALKING MUCH. SHE WASWALKING BEFORE [facility] ADMISSION. WITH WALKER. Review of Systems 10-point ROS is otherwise unremarkable General: Weakness Respiratory: Shortness of Breath Physical Examination - Vital Signs Temperature: 97.4 F Blood Pressure: 110/53 Pulse: 101 Respirations: 18 Pulse Ox (%): 92 - Physical Exam General: Mild distress, Obese HEENT: Atraumatic, PERRLA, EOMI Neck: Supple, JVD not distended Respiratory: Clear to auscultation bilaterally, Normal air movement Cardiovascular: Regular rate/rhythm, Normal S1 S2 Gastrointestinal: Normal bowel sounds, No tenderness Musculoskeletal: No tenderness Integumentary: No rashes Neurological: Normal speech, Normal tone, Normal affect Lymphatics: No axilla or inguinal lymphadenopathy - Studies Laboratory Data (last 24 hrs) 05/15/22 : Sodium Cancelled, Potassium Cancelled, BUN Cancelled, Creatinine Cancelled, Glucose Cancelled 05/15/22 04:32: Sodium 142, Potassium 4.4, BUN 23 H, Creatinine 1.04, Glucose 100 Microbiology Data (last 24 hrs): 05/14/22 13:30 Sputum Sputum Gram Stain - Final Medications List Reviewed: Yes Assessment And Plan - Current Problems (Diagnosis) (1) Hypercapnemia Current Visit: Yes Status: Chronic Plan: NEED TO REDUCE CO2 BUT WILL BE DIFFICULT SHE IS MORBIDLY OBESE. AGREE WITH STOPPING LASIX AND COMBINATION OF DIAMOX AND SPIRONOLACTONE. IN THE PAST SHE GOES TO ER AND CHANGES OVER TO LASIX. I HAVE TRIIED THIS BEFORE. THIS TIME I AM GOING TO RAISE SPIRONOLACONE TO 100 MG DAILY. (2) Lymphedema Current Visit: Yes Status: Chronic (3) Pneumonia due to COVID-19 virus Current Visit: Yes Status: Acute Plan: CONSULT DR. BURKETT. MAY NEED COVID RX. PROGNOSIS GUARDED. NOT SURE WHY SHE IS ON TWO ABX. WILL FIND OUT. (4) Cellulitis, leg Current Visit: Yes Status: Acute Plan: LEGS SHOW NO SIGN OF CELLULITIS SHE HAS ALREADY IMPROVED WELL. I WILL STOP ZYVOX FROM THE BEGINING SHE SAYS IT WAS NOT THAT RED. I SUSPECT THEY OVERTREATED WTIH VANCO AND ZOSYN. AUGMENTIN FOR A FEW DAYS SHOULD BE ENOUGH. (5) Dyspnea Current Visit: Yes Status: Chronic Plan: THERE IS NO CLEAR SIGN OF PE. SHE COULD NOT GET ON VQ TABLE OR CT TABLE WITH THE BODY HABITUS. I WILL REDUCE ELIQUIS TO 5 MG BID SHE DOES NOT NEED THERAPEUTIC DOSE. STOP ASPIRIN. IMPROVED SOME. BICARB IS LOWER. (6) Positive culture findings in sputum Current Visit: Yes Status: Acute Plan: UNCLEAR IF THIS IS CONTAMINATION. WILL WAIT FOR ID. CONT AUGMENTIN.
[2022-05-16 04:39] LABS: Absolute Lymphocytes (CBC) 1.3 K/uL (0.7-4.9); Hematocrit 28.3 % (36.0-45.0); Lymphocytes % 20.8 % (15.3-44.8); MCV 93.6 fL (80-100); MPV 7.4 fL (7.6-11.3); RBC Red Blood Cell Count 3.02 M/uL (3.86-4.86)
[2022-05-16 05:09] LABS: Albumin 2.6 g/dL (3.4-5.0); Magnesium 2.3 mg/dL (1.8-2.4); Potassium 4.4 mmol/L (3.5-5.1); Prealbumin 12.5 mg/dL (20-40)
[2022-05-16] MEDS: NYSTATIN PWDR 100000 UNIT/GM TOP SCH ×2 (07:45→20:58)
[2022-05-16] MEDS: MUPIROCIN 2% OINT 22GM TUBE TOP SCH (07:45)
[2022-05-16] MEDS: MULTIVIT W/ MINERAL TAB PO SCH (07:46)
[2022-05-16] MEDS: AMOX/K CLAV 875 MG TAB PO SCH (07:46)
[2022-05-16] MEDS: FAMOTIDINE 20 MG TAB PO SCH (07:46)
[2022-05-16] MEDS: ASCORBIC ACID 500 MG TABLET PO SCH ×2 (07:46→20:58)
[2022-05-16] MEDS: SPIRONOLACTONE 25 MG TABLET PO SCH ×2 (07:46→20:58)
[2022-05-16] MEDS: acetaZOLAMIDE 250 MG TAB PO SCH (07:47)
[2022-05-16] MEDS: MONTELUKAST 10 MG TAB PO SCH (07:47)
[2022-05-16] MEDS: METOPROLOL XL 25 MG TAB PO SCH (07:47)
[2022-05-16] MEDS: APIXABAN 5 MG TABLET PO SCH ×2 (07:47→20:59)
[2022-05-16] MEDS: ISOSORBIDE MONO SR 30 MG TAB PO SCH (07:48)
[2022-05-16] MEDS: GUAIFENESIN/DM 5 ML UCUP PO PRN (10:18)
[2022-05-16] MEDS: CODEINE 30MG/APAP 300MG TAB PO PRN ×2 (10:26→21:14)
[2022-05-16] MEDS: GLUCERNA SHAKE 237 ML CAN PO SCH (16:25)
--- NOTE | 2022-05-16 18:02 | R.PN ---
PROGRESS NOTES ENCOUNTER DATE AND TIME: 05/16/2022 17:57 (CDT) NAME DEEPAK LEE DATE OF : 1950 DATE OF ADMISSION: 05/11/2022 00:12 (CDT) Acute diastolic (congestive) heart failure (I50.31)CHIEF COMPLAINT: Diastolic heart failure SUBJECTIVE: Pt denied any Shortness of Breath. Pt denied any depression. Bed mobility done with max assistance. O2 sat drops to 82% with physical exertion. Recovers to 92-94% with 2-3 minutes of rest. She has a positive and then negative covid-19 test. CBC with diff is remarkable for low Hgb of 9.3, CO2 has improved to 36 and prealbumin has improved to 12.5. Chest x-ray shows mild bilateral pneumonia. She is followed by Dr. Becerril and is on Augmentin. Ambulated 15' with SBA using a rolling walker. VITAL SIGNS Temperature: 98.2 F SBP/DBP: 121/52 Pulse: 80 Resp: 16 MEDICATION ALLERGIES: No Known Drug Allergies (NKDA) ENVIRONMENTAL ALLERGIES: - Substance Allergies None Known - Other Allergies None Known NURSING: - Shower allowing shower ACTIVITIES OOB only with supervision THERAPIES: - Dietary and Nutrition Adequate Nutrition. Nutritional Education. Nutritional Supplements. - Occupational Therapy Cognitive Retraining. Patient needs Occupational Therapy for a daily minimum of 1.5 hours at least 5 out of 7 days, to improve Activities of Daily Living, including: Eating, Grooming, Bathing, Dressing, Toileting, Toilet Transfers, Community Reintegration, Higher functional activities, Adaptive Equipme nt, Splinting, Household Tasks, and Other activities as determined. Visual Perceptual Training. - Speech Therapy Cognitive Training. Expressive Language Skills. Memory Strategies. Patient needs Speech Therapy for a daily minimum of 0 hours at least 0 out of 0 days, to improve: Swallowing, Cognition, Language Skill s, and Compensatory Strategies. Receptive Language Skills. Speech Intelligibility Training. - Physical Therapy Patient needs Physical Therapy for a daily minimum of 1.5 hours at least 5 out of 7 days, to improve: Mobility, Strengthening, Transfers, Stretching, ROM, Endurance, Ability to manage stairs, Gait, and Balance. PHYSICAL EXAM - Gen Alert and awake Lying in bed No apparent distress Oriented to: person, time, and place - Skin Lower leg wound Normacephalic - Eyes No abnormalities - ENMT No abnormalities - Neck No abnormalities - CVS RRR - Chest Mildly decreased breath sounds bilaterally. - Resp Course lungs bilaterally - Abd + bowel sounds - GI Soft Deferred - No abnormalities - Ext No significant edema - MSK 4+/5 weakness in both lower extremities. - Neuro No focal deficits ASSESSMENT: Pt. is a 71 yo Right-handed white female.On 05/05/2022 she was admitted to [facility] with diagnosis Acute diastolic (congestive) heart failure (I50.31).Her impairment category is Cardiac 09 - Cardiac Disorders (09).Pre-morbidly, Pt. was independent/mod-I in Locomotion, Safety A wareness, Social Cognition, Balance, Transfers Control, Self-Care, Sphincter Control, and Communicati on; and she had good Endurance.Currently, she has deficits of Locomotion, Balance, Transfers Control, Sphincter Control, Self-Care, and Endurance.Pt. is now referred to [facility] for acute in-patient rehabilitation in order to maximize patient's functional independence in activi ties of daily living, strength, ROM, and mobility.- Rehab Goal Patient has realistic goal of being discharged at assistance level Isela-to-sup to reside at Home with Family/Relatives. MDM/PLAN: - Physical Therapy Gait dysfunction - to improve, our physical therapists will perform initial evaluation of pt's statu s upon admission and devise an individualized program for Gait Training, and Wheel Chair mobility Inability to transfer - to improve, our physical therapists will perform initial evaluation of pt's status upon admission and devise an individualized program for Bed mobility Need for home safety evaluation - to improve, our physical therapists will perform initial evaluatio n of pt's status upon admission and devise an individualized program for Home Evaluation Need in caregiver upon discharge - to improve, our physical therapists will perform initial evaluati on of pt's status upon admission and devise an individualized program for Caregiver Training New precaution - to improve, our physical therapists will perform initial evaluation of pt's status upon admission and devise an individualized program for Patient precaution education Edema - to improve, our physical therapists will perform initial evaluation of pt's status upon admi ssion and devise an individualized program for Elevation Training, and Lymphedema Therapy Having wound - to improve, our physical therapists will perform initial evaluation of pt's status up on admission and devise an individualized program for Wound Care Poor balance - to improve, our physical therapists will perform initial evaluation of pt's status up on admission and devise an individualized program for Balance Training Poor endurance - to improve, our physical therapists will perform initial evaluation of pt's status upon admission and devise an individualized program for Endurance Training Weakness - to improve, our physical therapists will perform initial evaluation of pt's status upon a dmission and devise an individualized program for Aquatic Therapy, Neuromuscular Reeducation, and Str engthening Achieving independence - to improve, our physical therapists will perform initial evaluation of pt's status upon admission and devise an individualized program for Community Reintegration Activities - Occupational Therapy ADL deficits - to improve, our occupation therapists will perform initial evaluation of pt's status upon admission and devise an individualized program for Bathing, Bed mobility, Community Reintegratio n, Cooking, Dressing, Eating, Fine Motor Skills, Grooming, Homemaking, Kitchen Mobility, Laundry, Pat ient Education, Safety Awareness, Splinting - Positioning, Transfers(Toilet, Tub, Shower), and Wheel Chair Management Need for care team assistant - to improve, our occupation therapists will perform initial evaluation of pt's status upon admission and devise an individualized program for Caregiver Training Weakness - to improve, our occupation therapists will perform initial evaluation of pt's status upon admission and devise an individualized program for Aquatic Therapy, Balance, Endurance, UE ROM, and UE strengthening - Other See attached MAR (Medication Administration Record) - Diet Type Continue Regular - Diet - Liquid Texture Continue Regular - Tube Feed Continue N/A - Diet - Solid Texture Continue Regular - Shower allowing shower FUNCTIONAL STATUS: UPDATED AT WEEKLY TEAM CONFERENCE - Bladder Same accident frequency: UNK - No information - Bowel Same accident frequency: UNK - No information - Walking Same score based on distance walked: 0(N/A) Same score based on distance walked: 1(<=50ft) - Wheelchair Same score based on distance traveled: 0(N/A) FUNCTIONAL STATUS: - Self-Care A. Eating Isela B. Grooming sup C. Bathing sup D. Dressing - Upper sup E. Dressing - Lower modA F. Toileting Helio - Sphincter Control G. Bladder control Isela H. Bowel control Ind - Transfers Control I. Bed/Chair/Wheelchair Helio J. Toilet Helio K. Tub/Shower sup - Locomotion L. Walk/Wheelchair (B) modA M. Stairs maxA - Communication N. Comprehension (B) Ind O. Expression (B) Ind - Social Cognition P. Social Interaction Ind Q. Problem Solving Isela R. Memory Isela - Endurance Poor - Balance Fair - Safety Awareness Fair QI SCORES: - Self-Care A. Eating 05-Setup or clean-up assistance B. Oral hygiene 05-Setup or clean-up assistance C. Toileting hygiene 02-Substantial/maximal assistance E. Shower/bathe self 02-Substantial/maximal assistance F. Upper body dressing 03-Partial/moderate assistance G. Lower body dressing 01-Dependent H. Putting on/taking off footwear 01-Dependent - Mobility A. Roll left and right 02-Substantial/maximal assistance B. Sit to lying 02-Substantial/maximal assistance C. Lying to sitting on side of bed 02-Substantial/maximal assistance D. Sit to stand 03-Partial/moderate assistance E. Chair/[id number]-gaaac transfer 02-Substantial/maximal assistance F. Toilet transfer 02-Substantial/maximal assistance G. Car transfer 88-Not attempted due to medical condition or safety concerns I. Walk 10 feet 88-Not attempted due to medical condition or safety concerns J. Walk 50 feet with two turns 88-Not attempted due to medical condition or safety concerns K. Walk 150 feet 88-Not attempted due to medical condition or safety concerns L. Walking 10 feet on uneven surfaces 88-Not attempted due to medical condition or safety concerns M. 1 step (curb) 88-Not attempted due to medical condition or safety concerns N. 4 steps 88-Not attempted due to medical condition or safety concerns O. 12 steps 88-Not attempted due to medical condition or safety concerns P. Picking up object 88-Not attempted due to medical condition or safety concerns R. Wheel 50 feet with two turns S. Wheel 150 feet - Bladder and Bowel Bladder continence Bowel continence - Endurance Poor - Balance Poor - Safety Awareness Fair CURRENT FUNC. DEFICITS: Self-Care, Mobility, Endurance, Balance, and Safety Awareness SIGNATURE PANEL: (CDT)
[2022-05-16] MEDS: SMZ./TMP. 800/160 MG TABLET PO SCH (20:59)
[2022-05-16] MEDS: PROMETHAZINE-DM 5 ML OSYR PO PRN (21:13)
[2022-05-16] MEDS: CETIRIZINE HCL 5 MG TABLET PO PRN (21:13)
--- NOTE | 2022-05-16 21:36 | P.PN ---
Subjective Date of Service: 05/16/22 Chief Complaint: Respiratory failure, LEGS INFECTION, LYPHEDEMA, MORBID OBEISTY Subjective: Improving DEEPAK IS MORBIDLY OBESE LADY WITH SEVERE LYMPHEDEMA WHERE THE THIGHS AND LEGS ARE HUGE IN SIZE AND SHE GOES TO ER WHEN SHE THINKS SHE HAS NEED OF LASIX. UN FORTUNATELY LASIX IS GIVING RISE TO HYPERCARBIA AND SHE HAS WORSENED CO2 FROM IT. SHE ENDS UP IN [facility] EVERY FEW MONTHS. SHE HAS NO ACUTE ISSUES. Physical Examination - Vital Signs Temperature: 98.2 F Blood Pressure: 114/51 Pulse: 76 Respirations: 18 Pulse Ox (%): 94 - Physical Exam General: Oriented x3, Mild distress, Obese HEENT: Atraumatic, PERRLA, EOMI Neck: Supple, JVD not distended Respiratory: Diminished Cardiovascular: Regular rate/rhythm, Normal S1 S2 Gastrointestinal: Normal bowel sounds, No tenderness Musculoskeletal: No tenderness Integumentary: No rashes Neurological: Normal speech, Normal tone, Normal affect Lymphatics: No axilla or inguinal lymphadenopathy - Studies Laboratory Data (last 24 hrs) 05/16/22 03:52: Sodium 141, Potassium 4.4, BUN 27 H, Creatinine 1.00, Glucose 104, Magnesium 2.3 05/16/22 03:52: WBC 6.1, Hgb 9.3 L, Hct 28.3 L, Plt Count 208 Microbiology Data (last 24 hrs): 05/14/22 13:30 Sputum Sputum Gram Stain - Final 05/14/22 13:30 Sputum Culture & Sensitivity - Final Enterobacter Cloacae Gram Neg Jorge Medications List Reviewed: Yes Assessment And Plan - Current Problems (Diagnosis) (1) Hypercapnemia Current Visit: Yes Status: Chronic Plan: NEED TO REDUCE CO2 BUT WILL BE DIFFICULT SHE IS MORBIDLY OBESE. AGREE WITH STOPPING LASIX AND COMBINATION OF DIAMOX AND SPIRONOLACTONE. IN THE PAST SHE GOES TO ER AND CHANGES OVER TO LASIX. I HAVE TRIIED THIS BEFORE. THIS TIME I AM GOING TO RAISE SPIRONOLACONE TO 100 MG DAILY. NO SIGNS OF NARCOSIS FOR NOW. (2) Lymphedema Current Visit: Yes Status: Chronic (3) Pneumonia due to COVID-19 virus Current Visit: Yes Status: Acute Plan: CONSULT DR. BURKETT. MAY NEED COVID RX. PROGNOSIS GUARDED. NOT SURE WHY SHE IS ON TWO ABX. WILL FIND OUT. (4) Cellulitis, leg Current Visit: Yes Status: Acute Plan: LEGS SHOW NO SIGN OF CELLULITIS SHE HAS ALREADY IMPROVED WELL. I WILL STOP ZYVOX FROM THE BEGINING SHE SAYS IT WAS NOT THAT RED. I SUSPECT THEY OVERTREATED WTIH VANCO AND ZOSYN. AUGMENTIN FOR A FEW DAYS SHOULD BE ENOUGH. IT IS ALL CLEAR NOW. (5) Dyspnea Current Visit: Yes Status: Chronic Plan: THERE IS NO CLEAR SIGN OF PE. SHE COULD NOT GET ON VQ TABLE OR CT TABLE WITH THE BODY HABITUS. I WILL REDUCE ELIQUIS TO 5 MG BID SHE DOES NOT NEED THERAPEUTIC DOSE. STOP ASPIRIN. IMPROVED SOME. BICARB IS LOWER. (6) Positive culture findings in sputum Current Visit: Yes Status: Acute Plan: UNCLEAR IF THIS IS CONTAMINATION. WILL WAIT FOR ID. CONT AUGMENTIN.
[2022-05-16] MEDS ORDERED: CETIRIZINE HCL 5 MG TABLET PO PRN (21:44)
[2022-05-17] MEDS: CODEINE 30MG/APAP 300MG TAB PO PRN (04:27)
[2022-05-17] MEDS: APIXABAN 5 MG TABLET PO SCH ×2 (07:30→19:31)
[2022-05-17] MEDS: ISOSORBIDE MONO SR 30 MG TAB PO SCH ×2 (08:00→13:12)
[2022-05-17] MEDS: NYSTATIN PWDR 100000 UNIT/GM TOP SCH ×2 (08:58→19:31)
[2022-05-17] MEDS: MUPIROCIN 2% OINT 22GM TUBE TOP SCH (08:58)
[2022-05-17] MEDS: SPIRONOLACTONE 25 MG TABLET PO SCH ×2 (09:03→19:30)
[2022-05-17] MEDS: FAMOTIDINE 20 MG TAB PO SCH (09:05)
[2022-05-17] MEDS: acetaZOLAMIDE 250 MG TAB PO SCH (09:05)
[2022-05-17] MEDS: MULTIVIT W/ MINERAL TAB PO SCH (09:05)
[2022-05-17] MEDS: SMZ./TMP. 800/160 MG TABLET PO SCH ×2 (09:06→19:30)
[2022-05-17] MEDS: MONTELUKAST 10 MG TAB PO SCH (09:06)
[2022-05-17] MEDS: METOPROLOL XL 25 MG TAB PO SCH (09:06)
[2022-05-17] MEDS: ASCORBIC ACID 500 MG TABLET PO SCH ×2 (09:06→19:31)
[2022-05-17] MEDS: GLUCERNA SHAKE 237 ML CAN PO SCH ×3 (09:11→16:39)
--- NOTE | 2022-05-17 09:44 | P.RH.PN ---
Estimated Length of Stay: 15 Expected Discharge Date: 05/26/22 Discharge Disposition Plan: Home Family Support: Yes Half-Way Goal: Mobility, Transfers, Self Care Vital Signs: Last Vital Signs Temp 98.0 F 05/16/22 23:52 Pulse 87 05/17/22 09:06 Resp 18 05/17/22 04:27 BP 110/54 L 05/17/22 09:06 Pulse Ox 94 05/17/22 04:27 Laboratory: Laboratory Last Values WBC 6.1 K/uL (4.3-10.9) 05/16/22 03:52 RBC 3.02 M/uL (3.86-4.86) L 05/16/22 03:52 Hgb 9.3 g/dL (12.0-15.0) L 05/16/22 03:52 Hct 28.3 % (36.0-45.0) L 05/16/22 03:52 MCV 93.6 fL (80-100) 05/16/22 03:52 MCH 30.8 pg (27.0-35.0) 05/16/22 03:52 MCHC 32.9 g/dL (32.0-36.0) 05/16/22 03:52 RDW 13.7 % (12.1-15.2) 05/16/22 03:52 Plt Count 208 K/uL (152-406) 05/16/22 03:52 MPV 7.4 fL (7.6-11.3) L 05/16/22 03:52 Neutrophils % 59.4 % (41.7-73.7) 05/16/22 03:52 Lymphocytes % 20.8 % (15.3-44.8) 05/16/22 03:52 Monocytes % 11.9 % (3.3-12.3) 05/16/22 03:52 Eosinophils % 7.5 % (0-4.4) H 05/16/22 03:52 Basophils % 0.4 % (0-1.3) 05/16/22 03:52 Absolute Neutrophils 3.6 K/uL (1.8-8.0) 05/16/22 03:52 Absolute Lymphocytes 1.3 K/uL (0.7-4.9) 05/16/22 03:52 Absolute Monocytes 0.7 K/uL (0.1-1.3) 05/16/22 03:52 Absolute Eosinophils 0.5 K/uL (0-0.5) 05/16/22 03:52 Absolute Basophils 0.0 K/uL (0-0.5) 05/16/22 03:52 pH 7.44 (7.35-7.45) 05/11/22 15:41 pCO2 59.2 mmHG (35-45) H 05/11/22 15:41 pO2 45.7 mmHG (75-100) L 05/11/22 15:41 HCO3 39.7 mmol/L (22-28) H 05/11/22 15:41 Base Excess 14.6 mmol/L 05/11/22 15:41 Oxyhemoglobin 80.7 % (94-97) L 05/11/22 15:41 ABG O2 Sat (Measured) 82.9 % (92-98.5) L 05/11/22 15:41 ABG Carboxyhemoglobin 2.0 % (0-1.5) H 05/11/22 15:41 ABG Methemoglobin 0.7 % (0-1.5) 05/11/22 15:41 Other Total Hgb 11.9 g/dl (12-18) L 05/11/22 15:41 Inspired O2 21.0 % 05/11/22 15:41 Sodium 141 mmol/L (136-145) 05/16/22 03:52 Potassium 4.4 mmol/L (3.5-5.1) 05/16/22 03:52 Chloride 105 mmol/L (98-107) 05/16/22 03:52 Carbon Dioxide 36 mmol/L (21-32) H 05/16/22 03:52 Anion Gap 4.4 mEq/L (5.0-15.0) L 05/16/22 03:52 BUN 27 mg/dL (7-18) H 05/16/22 03:52 Creatinine 1.00 mg/dL (0.55-1.3) 05/16/22 03:52 Est GFR (CKD-EPI) 60 ml/min (=/>90) L 05/16/22 03:52 Glucose 104 mg/dL (74-106) 05/16/22 03:52 Calcium 8.6 mg/dL (8.5-10.1) 05/16/22 03:52 Magnesium 2.3 mg/dL (1.8-2.4) 05/16/22 03:52 Albumin 2.6 g/dL (3.4-5.0) L 05/16/22 03:52 Prealbumin 12.5 mg/dL (20-40) L 05/16/22 03:52 Urine Color Yellow (Yellow) 05/11/22 03:33 Urine Appearance Clear (Clear) 05/11/22 03:33 Urine pH 6.5 (5.0-7.0) 05/11/22 03:33 Ur Specific [place] 1.015 (1.005-1.030) 05/11/22 03:33 Glucose (UA)(Auto) Negative (Negative) 05/11/22 03:33 Urine Ketones Negative (Negative) 05/11/22 03:33 Urine Blood Negative (Negative) 05/11/22 03:33 Urine Nitrite Negative (Negative) 05/11/22 03:33 Urine Bilirubin Negative (Negative) 05/11/22 03:33 Urine Urobilinogen 0.2 mg/dL (0.2-1.0) 05/11/22 03:33 Ur Leukocyte Esterase Negative (Negative) 05/11/22 03:33 Urine RBC <5 /HPF (NONE SEEN) 05/11/22 03:33 Urine WBC <5 /HPF (<5) 05/11/22 03:33 Ur Squamous Epith Cells 5-10 /HPF (NONE SEEN) H 05/11/22 03:33 Ur Urothelial Cells Cancelled 05/11/22 00:30 Calcium Oxalate Crystal Cancelled 05/11/22 00:30 Uric Acid Crystals Cancelled 05/11/22 00:30 Triple Phos Crystals Cancelled 05/11/22 00:30 Other Crystals Cancelled 05/11/22 00:30 Amorphous Sediment 1+ /HPF (NONE SEEN) 05/11/22 03:33 Glitter Cells Cancelled 05/11/22 00:30 Urine Bacteria 20-50 /HPF (<20) H 05/11/22 03:33 Hyaline Casts Cancelled 05/11/22 00:30 Fine Granular Casts Cancelled 05/11/22 00:30 Coarse Granular Casts Cancelled 05/11/22 00:30 Waxy Casts Cancelled 05/11/22 00:30 RBC Casts Cancelled 05/11/22 00:30 WBC Casts Cancelled 05/11/22 00:30 Urine Mucus 1+ /HPF (NONE SEEN) 05/11/22 03:33 Urine Other Cancelled 05/11/22 00:30 Urine Trichomonas Cancelled 05/11/22 00:30 Urine Yeast Cancelled 05/11/22 00:30 Ur Yeast w Hyphae Cancelled 05/11/22 00:30 Urine Yeast (Budding) Cancelled 05/11/22 00:30 Urine Sperm Cancelled 05/11/22 00:30 Urine Culture Reflexed Not needed 05/11/22 03:33 Urine Total Volume Cancelled 05/11/22 00:30 Urine Total Protein Negative (Negative) 05/11/22 03:33 SARS-CoV-2 Rap RNA(RT-PCR) Negative (NEGATIVE) 05/12/22 02:15 Weight: 383 lb Wound Present: Yes Closed Surgical Incision Present: No Negative Pressure Wound Therapy Present: No Physician Update: Labs reviewed and are stable. She still has significant SOB due to desats. Bed mobility SBA, sit to supine Max assist. Transferring CGA, gait 10' at SBA, WC 40' with SBA. Desats to 82% with ambulation. Functional Improvement: Patient presents w/ increased apprehension toward Covid, however follows instruction well. Patient is progressing toward meeting short- term and long-term goals. Summary: Patient's care plan and half-way goals have been reviewed and revised as necessary. Please see the Rehabilitation Signature page for all necessary signatures.
--- NOTE | 2022-05-17 10:25 | RAD REPORT ---
EXAM DESCRIPTION: RAD - Chest Single View - 05/16/2022 10:47 pm CLINICAL HISTORY: Shortness of breath. COMPARISON: None. TECHNIQUE: AP Chest. FINDINGS: Cardiac size is mildly enlarged. Normal aorta atherosclerosis. There is bilateral bronchia l thickening. No consolidation or edema. Pleural spaces are clear. Asymmetric elevation of the right hemidiaphragm. Unremarkable soft tissues and bones. IMPRESSION: 1. Bronchitis. 2. Mild cardiomegaly. Electronically signed by: Marci Giordano DO 05/16/2022 11:07 PM CDT Due to temporary technical issues with the PACS/Fluency reporting system, reports are being signed by the in house radiologists without review as a courtesy to insure prompt reporting. The interpreting radiologist is fully responsible for the content of the report.
--- NOTE | 2022-05-17 16:34 | P.PN ---
Subjective Date of Service: 05/17/22 Chief Complaint: Respiratory failure, LEGS INFECTION, LYPHEDEMA, MORBID OBEISTY Subjective: Improving DEEPAK IS MORBIDLY OBESE LADY WITH SEVERE LYMPHEDEMA WHERE THE THIGHS AND LEGS ARE HUGE IN SIZE AND SHE GOES TO ER WHEN SHE THINKS SHE HAS NEED OF LASIX. UN FORTUNATELY LASIX IS GIVING RISE TO HYPERCARBIA AND SHE HAS WORSENED CO2 FROM IT. SHE ENDS UP IN [facility] EVERY FEW MONTHS. SHE HAS NO ACUTE ISSUES. SHE IS STABLE. DAILY ASKS THE SAME QUESTION, IF SHE HAD COIVD AND WHEN CAN FAMILY COME TO SEE HER. SHE HAS NO ACUTE ISSUES. Physical Examination - Vital Signs Temperature: 98.0 F Blood Pressure: 135/54 Pulse: 87 Respirations: 18 Pulse Ox (%): 94 - Physical Exam General: Oriented x3, Obese HEENT: Atraumatic, PERRLA, EOMI Neck: Supple, JVD not distended Respiratory: Clear to auscultation bilaterally, Normal air movement Cardiovascular: Regular rate/rhythm, Normal S1 S2 Gastrointestinal: Normal bowel sounds, No tenderness Musculoskeletal: No tenderness Integumentary: No rashes Neurological: Normal speech, Normal tone, Normal affect Lymphatics: No axilla or inguinal lymphadenopathy - Studies Medications List Reviewed: Yes Assessment And Plan - Current Problems (Diagnosis) (1) Hypercapnemia Current Visit: Yes Status: Chronic Plan: NEED TO REDUCE CO2 BUT WILL BE DIFFICULT SHE IS MORBIDLY OBESE. AGREE WITH STOPPING LASIX AND COMBINATION OF DIAMOX AND SPIRONOLACTONE. IN THE PAST SHE GOES TO ER AND CHANGES OVER TO LASIX. I HAVE TRIIED THIS BEFORE. THIS TIME I AM GOING TO RAISE SPIRONOLACONE TO 100 MG DAILY. NO SIGNS OF NARCOSIS FOR NOW. (2) Lymphedema Current Visit: Yes Status: Chronic Plan: NO SIGNS OF INFECTION. SHE IS ON BACTRIM FOR SPUTUM CULTURE WITH EARLY PNEUMONIA THAT IS IMPROVING. (3) Pneumonia due to COVID-19 virus Current Visit: Yes Status: Acute Plan: CONSULT DR. BURKETT. MAY NEED COVID RX. PROGNOSIS GUARDED. NOT SURE WHY SHE IS ON TWO ABX. WILL FIND OUT. CXR IS IMPROVING. NO PNEUMONIA ON LATEST X RAY. (4) Cellulitis, leg Current Visit: Yes Status: Acute Plan: LEGS SHOW NO SIGN OF CELLULITIS SHE HAS ALREADY IMPROVED WELL. I WILL STOP ZYVOX FROM THE BEGINING SHE SAYS IT WAS NOT THAT RED. I SUSPECT THEY OVERTREATED WTIH VANCO AND ZOSYN. AUGMENTIN FOR A FEW DAYS SHOULD BE ENOUGH. IT IS ALL CLEAR NOW. (5) Dyspnea Current Visit: Yes Status: Chronic Plan: THERE IS NO CLEAR SIGN OF PE. SHE COULD NOT GET ON VQ TABLE OR CT TABLE WITH THE BODY HABITUS. I WILL REDUCE ELIQUIS TO 5 MG BID SHE DOES NOT NEED THERAPEUTIC DOSE. STOP ASPIRIN. IMPROVED SOME. BICARB IS LOWER. (6) Positive culture findings in sputum Current Visit: Yes Status: Acute Plan: UNCLEAR IF THIS IS CONTAMINATION. WILL WAIT FOR ID. CONT AUGMENTIN.
[2022-05-18] MEDS: GUAIFENESIN/DM 5 ML UCUP PO PRN (00:56)
[2022-05-18] MEDS: CODEINE 30MG/APAP 300MG TAB PO PRN ×2 (05:10→10:15)
[2022-05-18 05:30] VITALS: BMI 61.3
[2022-05-18] MEDS: MUPIROCIN 2% OINT 22GM TUBE TOP SCH (07:39)
[2022-05-18] MEDS: NYSTATIN PWDR 100000 UNIT/GM TOP SCH ×2 (07:40→19:33)
[2022-05-18] MEDS: acetaZOLAMIDE 250 MG TAB PO SCH (07:41)
[2022-05-18] MEDS: SMZ./TMP. 800/160 MG TABLET PO SCH ×2 (07:41→19:32)
[2022-05-18] MEDS: APIXABAN 5 MG TABLET PO SCH ×2 (07:41→19:33)
[2022-05-18] MEDS: SPIRONOLACTONE 25 MG TABLET PO SCH ×2 (07:41→19:34)
[2022-05-18] MEDS: METOPROLOL XL 25 MG TAB PO SCH (07:41)
[2022-05-18] MEDS: MONTELUKAST 10 MG TAB PO SCH (07:42)
[2022-05-18] MEDS: ASCORBIC ACID 500 MG TABLET PO SCH ×2 (07:42→19:33)
[2022-05-18] MEDS: FAMOTIDINE 20 MG TAB PO SCH (07:42)
[2022-05-18] MEDS: MULTIVIT W/ MINERAL TAB PO SCH (07:42)
[2022-05-18] MEDS: GLUCERNA SHAKE 237 ML CAN PO SCH ×3 (07:42→17:05)
[2022-05-18] MEDS: ISOSORBIDE MONO SR 30 MG TAB PO SCH (12:00)
[2022-05-18 12:01] LABS: Absolute Lymphocytes (CBC) 1.1 K/uL (0.7-4.9); Hematocrit 29.5 % (36.0-45.0); Lymphocytes % 18.6 % (15.3-44.8); MCV 95.2 fL (80-100); MPV 7.4 fL (7.6-11.3); RBC Red Blood Cell Count 3.09 M/uL (3.86-4.86)
[2022-05-18 12:12] LABS: Potassium 4.8 mmol/L (3.5-5.1)
--- NOTE | 2022-05-18 15:48 | P.PN ---
Subjective Date of Service: 05/18/22 Chief Complaint: Respiratory failure, LEGS INFECTION, LYPHEDEMA, MORBID OBEISTY Subjective: Improving DEEPAK IS MORBIDLY OBESE LADY WITH SEVERE LYMPHEDEMA WHERE THE THIGHS AND LEGS ARE HUGE IN SIZE AND SHE GOES TO ER WHEN SHE THINKS SHE HAS NEED OF LASIX. UN FORTUNATELY LASIX IS GIVING RISE TO HYPERCARBIA AND SHE HAS WORSENED CO2 FROM IT. SHE ENDS UP IN [facility] EVERY FEW MONTHS. SHE IS STABLE. NO NEW ISSUES. BREATHIGN BETTER. NOT WALKING MUCH. I TOLD HER TO DO PT OTHERWISE SHE WILL END UP IN [facility]. Physical Examination - Vital Signs Temperature: 97.6 F Blood Pressure: 111/56 Pulse: 79 Respirations: 18 Pulse Ox (%): 94 - Physical Exam General: Oriented x3, Mild distress, Obese HEENT: Atraumatic, PERRLA, EOMI Neck: Supple, JVD not distended Respiratory: Clear to auscultation bilaterally, Normal air movement Cardiovascular: Regular rate/rhythm, Normal S1 S2 Gastrointestinal: Normal bowel sounds, No tenderness Musculoskeletal: No tenderness Integumentary: No rashes Neurological: Normal speech, Normal tone, Normal affect Lymphatics: No axilla or inguinal lymphadenopathy - Studies Laboratory Data (last 24 hrs) 05/18/22 11:45: Sodium 140, Potassium 4.8, BUN 28 H, Creatinine 1.26, Glucose 111 H 05/18/22 11:45: WBC 5.7, Hgb 9.6 L, Hct 29.5 L, Plt Count 209 Medications List Reviewed: Yes Assessment And Plan - Current Problems (Diagnosis) (1) Hypercapnemia Current Visit: Yes Status: Chronic Plan: NEED TO REDUCE CO2 BUT WILL BE DIFFICULT SHE IS MORBIDLY OBESE. AGREE WITH STOPPING LASIX AND COMBINATION OF DIAMOX AND SPIRONOLACTONE. IN THE PAST SHE GOES TO ER AND CHANGES OVER TO LASIX. I HAVE TRIIED THIS BEFORE. THIS TIME I AM GOING TO RAISE SPIRONOLACONE TO 100 MG DAILY. NO SIGNS OF NARCOSIS FOR NOW. STABLE ON MEDS. OXYGEN COMING DOWN. (2) Lymphedema Current Visit: Yes Status: Chronic Plan: NO SIGNS OF INFECTION. SHE IS ON BACTRIM FOR SPUTUM CULTURE WITH EARLY PNEUMONIA THAT IS IMPROVING. (3) Pneumonia due to COVID-19 virus Current Visit: Yes Status: Acute Plan: CONSULT DR. AG. MAY NEED COVID RX. PROGNOSIS GUARDED. NOT SURE WHY SHE IS ON TWO ABX. WILL FIND OUT. CXR IS IMPROVING. NO PNEUMONIA ON LATEST X RAY. (4) Cellulitis, leg Current Visit: Yes Status: Acute Plan: LEGS SHOW NO SIGN OF CELLULITIS SHE HAS ALREADY IMPROVED WELL. I WILL STOP ZYVOX FROM THE BEGINING SHE SAYS IT WAS NOT THAT RED. I SUSPECT THEY OVERTREATED WTIH VANCO AND ZOSYN. AUGMENTIN FOR A FEW DAYS SHOULD BE ENOUGH. IT IS ALL CLEAR NOW. (5) Dyspnea Current Visit: Yes Status: Chronic Plan: THERE IS NO CLEAR SIGN OF PE. SHE COULD NOT GET ON VQ TABLE OR CT TABLE WITH THE BODY HABITUS. I WILL REDUCE ELIQUIS TO 5 MG BID SHE DOES NOT NEED THERAPEUTIC DOSE. STOP ASPIRIN. IMPROVED SOME. BICARB IS LOWER. (6) Positive culture findings in sputum Current Visit: Yes Status: Acute Plan: UNCLEAR IF THIS IS CONTAMINATION. WILL WAIT FOR ID. CONT AUGMENTIN.
[2022-05-19] MEDS: MUPIROCIN 2% OINT 22GM TUBE TOP SCH (07:43)
[2022-05-19] MEDS: APIXABAN 5 MG TABLET PO SCH ×2 (07:44→20:28)
[2022-05-19] MEDS: SPIRONOLACTONE 25 MG TABLET PO SCH ×2 (07:44→20:29)
[2022-05-19] MEDS: NYSTATIN PWDR 100000 UNIT/GM TOP SCH ×2 (07:44→20:28)
[2022-05-19] MEDS: MONTELUKAST 10 MG TAB PO SCH (07:45)
[2022-05-19] MEDS: SMZ./TMP. 800/160 MG TABLET PO SCH ×2 (07:45→20:29)
[2022-05-19] MEDS: FAMOTIDINE 20 MG TAB PO SCH (07:45)
[2022-05-19] MEDS: ASCORBIC ACID 500 MG TABLET PO SCH ×2 (07:45→20:29)
[2022-05-19] MEDS: METOPROLOL XL 25 MG TAB PO SCH (07:45)
[2022-05-19] MEDS: acetaZOLAMIDE 250 MG TAB PO SCH (07:45)
[2022-05-19] MEDS: MULTIVIT W/ MINERAL TAB PO SCH (07:46)
[2022-05-19] MEDS: GLUCERNA SHAKE 237 ML CAN PO SCH ×3 (07:47→16:26)
--- NOTE | 2022-05-19 12:14 | P.PN ---
Subjective Date of Service: 05/19/22 Chief Complaint: Respiratory failure, LEGS INFECTION, LYPHEDEMA, MORBID OBEISTY Subjective: Improving DEEPAK IS MORBIDLY OBESE LADY WITH SEVERE LYMPHEDEMA WHERE THE THIGHS AND LEGS ARE HUGE IN SIZE AND SHE GOES TO ER WHEN SHE THINKS SHE HAS NEED OF LASIX. UN FORTUNATELY LASIX IS GIVING RISE TO HYPERCARBIA AND SHE HAS WORSENED CO2 FROM IT. SHE ENDS UP IN [facility] EVERY FEW MONTHS. STABLE, NO NEW ISSUES. NO COUGH, NO FEVER. Review of Systems 10-point ROS is otherwise unremarkable Physical Examination - Vital Signs Temperature: 97.1 F Blood Pressure: 143/67 Pulse: 83 Respirations: 16 Pulse Ox (%): 90 - Physical Exam General: In no apparent distress, Oriented x3, Obese HEENT: Atraumatic, PERRLA, EOMI Neck: Supple, JVD not distended Respiratory: Clear to auscultation bilaterally, Normal air movement Cardiovascular: Regular rate/rhythm, Normal S1 S2 Gastrointestinal: Normal bowel sounds, No tenderness Musculoskeletal: No tenderness Integumentary: No rashes Neurological: Normal speech, Normal tone, Normal affect Lymphatics: No axilla or inguinal lymphadenopathy - Studies Laboratory Data (last 24 hrs) 05/18/22 11:45: Sodium 140, Potassium 4.8, BUN 28 H, Creatinine 1.26, Glucose 111 H Medications List Reviewed: Yes Assessment And Plan - Current Problems (Diagnosis) (1) Hypercapnemia Current Visit: Yes Status: Chronic Plan: NEED TO REDUCE CO2 BUT WILL BE DIFFICULT SHE IS MORBIDLY OBESE. AGREE WITH STOPPING LASIX AND COMBINATION OF DIAMOX AND SPIRONOLACTONE. IN THE PAST SHE GOES TO ER AND CHANGES OVER TO LASIX. I HAVE TRIIED THIS BEFORE. THIS TIME I AM GOING TO RAISE SPIRONOLACONE TO 100 MG DAILY. NO SIGNS OF NARCOSIS FOR NOW. STABLE ON MEDS. OXYGEN COMING DOWN. (2) Lymphedema Current Visit: Yes Status: Chronic Plan: NO SIGNS OF INFECTION. SHE IS ON BACTRIM FOR SPUTUM CULTURE WITH EARLY PNEUMONIA THAT IS IMPROVING. CHRONIC ISSUES. ULCERS ARE HEALING L SIDE. SMALL, CLEAN AND USES COMPRESSION. (3) Pneumonia due to COVID-19 virus Current Visit: Yes Status: Acute Plan: CONSULT DR. BURKETT. MAY NEED COVID RX. PROGNOSIS GUARDED. NOT SURE WHY SHE IS ON TWO ABX. WILL FIND OUT. CXR IS IMPROVING. NO PNEUMONIA ON LATEST X RAY. (4) Cellulitis, leg Current Visit: Yes Status: Acute Plan: LEGS SHOW NO SIGN OF CELLULITIS SHE HAS ALREADY IMPROVED WELL. I WILL STOP Z YVOX FROM THE BEGINING SHE SAYS IT WAS NOT THAT RED. I SUSPECT THEY OVERTREATED WTIH VANCO AND ZOSYN. AUGMENTIN FOR A FEW DAYS SHOULD BE ENOUGH. IT IS ALL CLEAR NOW. (5) Dyspnea Current Visit: Yes Status: Chronic Plan: THERE IS NO CLEAR SIGN OF PE. SHE COULD NOT GET ON VQ TABLE OR CT TABLE WITH THE BODY HABITUS. I WILL REDUCE ELIQUIS TO 5 MG BID SHE DOES NOT NEED THERAPEUTIC DOSE. STOP ASPIRIN. IMPROVED SOME. BICARB IS LOWER. (6) Positive culture findings in sputum Current Visit: Yes Status: Acute Plan: UNCLEAR IF THIS IS CONTAMINATION. WILL WAIT FOR ID. CONT AUGMENTIN.
[2022-05-19] MEDS: ISOSORBIDE MONO SR 30 MG TAB PO SCH (13:09)
[2022-05-19] MEDS: PROMETHAZINE-DM 5 ML OSYR PO PRN (20:45)
[2022-05-19] MEDS: CODEINE 30MG/APAP 300MG TAB PO PRN (20:45)
[2022-05-20 04:48] LABS: Absolute Lymphocytes (CBC) 1.6 K/uL (0.7-4.9); Hematocrit 30.5 % (36.0-45.0); Lymphocytes % 25.1 % (15.3-44.8); MCV 95.3 fL (80-100); MPV 7.5 fL (7.6-11.3)
[2022-05-20 05:06] LABS: Potassium 5.2 mmol/L (3.5-5.1)
[2022-05-20] MEDS: APIXABAN 5 MG TABLET PO SCH ×2 (07:24→20:21)
[2022-05-20] MEDS: FAMOTIDINE 20 MG TAB PO SCH (08:03)
[2022-05-20] MEDS: ASCORBIC ACID 500 MG TABLET PO SCH ×2 (08:03→20:21)
[2022-05-20] MEDS: METOPROLOL XL 25 MG TAB PO SCH (08:04)
[2022-05-20] MEDS: SMZ./TMP. 800/160 MG TABLET PO SCH ×2 (08:04→20:21)
[2022-05-20] MEDS: MULTIVIT W/ MINERAL TAB PO SCH (08:04)
[2022-05-20] MEDS: MONTELUKAST 10 MG TAB PO SCH (08:04)
[2022-05-20] MEDS: acetaZOLAMIDE 250 MG TAB PO SCH (08:05)
[2022-05-20] MEDS: SPIRONOLACTONE 25 MG TABLET PO SCH ×2 (08:06→20:21)
[2022-05-20] MEDS: NYSTATIN PWDR 100000 UNIT/GM TOP SCH (08:07)
[2022-05-20] MEDS: MUPIROCIN 2% OINT 22GM TUBE TOP SCH (08:07)
[2022-05-20] MEDS: GLUCERNA SHAKE 237 ML CAN PO SCH ×3 (08:08→16:37)
[2022-05-20] MEDS: ISOSORBIDE MONO SR 30 MG TAB PO SCH (11:53)
--- NOTE | 2022-05-20 18:10 | R.PN ---
PROGRESS NOTES ENCOUNTER DATE AND TIME: 05/20/2022 18:04 (CDT) NAME DEEPAK LEE DATE OF : 1950 DATE OF ADMISSION: 05/11/2022 00:12 (CDT) Acute diastolic (congestive) heart failure (I50.31)CHIEF COMPLAINT: Diastolic heart failure SUBJECTIVE: Pt denied any Shortness of Breath. Pt denied any depression. Bed mobility done with max assistance. O2 sat drops to 82% with physical exertion. Recovers to 92-94% with 2-3 minutes of rest. She has a positive and then negative covid-19 test. CBC with diff is remarkable for low Hgb of 9.9, CO2 has improved to 32, Engineering Administrator is elevated to 1.34. and prealbumin has improved to 12.5. Potassium elevated to 5.2. Results are consistent with dehydration. Will encourage 8 glasses of water daily. Chest x-ray shows mild bilateral pneumonia. She is followed by Dr. Becerril and is on Augmentin. Ambulated 15' with SBA using a rolling walker. VITAL SIGNS Temperature: 97.5 F SBP/DBP: 135/61 Pulse: 85 Resp: 16 MEDICATION ALLERGIES: No Known Drug Allergies (NKDA) ENVIRONMENTAL ALLERGIES: - Substance Allergies None Known - Other Allergies None Known NURSING: - Shower allowing shower ACTIVITIES OOB only with supervision THERAPIES: - Dietary and Nutrition Adequate Nutrition. Nutritional Education. Nutritional Supplements. - Occupational Therapy Cognitive Retraining. Patient needs Occupational Therapy for a daily minimum of 1.5 hours at least 5 out of 7 days, to improve Activities of Daily Living, including: Eating, Grooming, Bathing, Dressing, Toileting, Toilet Transfers, Community Reintegration, Higher functional activities, Adaptive Equipme nt, Splinting, Household Tasks, and Other activities as determined. Visual Perceptual Training. - Speech Therapy Cognitive Training. Expressive Language Skills. Memory Strategies. Patient needs Speech Therapy for a daily minimum of 0 hours at least 0 out of 0 days, to improve: Swallowing, Cognition, Language Skill s, and Compensatory Strategies. Receptive Language Skills. Speech Intelligibility Training. - Physical Therapy Patient needs Physical Therapy for a daily minimum of 1.5 hours at least 5 out of 7 days, to improve: Mobility, Strengthening, Transfers, Stretching, ROM, Endurance, Ability to manage stairs, Gait, and Balance. PHYSICAL EXAM - Gen Alert and awake Lying in bed No apparent distress Oriented to: person, time, and place - Skin Lower leg wound Normacephalic - Eyes No abnormalities - ENMT No abnormalities - Neck No abnormalities - CVS RRR - Chest Mildly decreased breath sounds bilaterally. - Resp Course lungs bilaterally - Abd + bowel sounds - GI Soft Deferred - No abnormalities - Ext No significant edema - MSK 4+/5 weakness in both lower extremities. - Neuro No focal deficits ASSESSMENT: Pt. is a 71 yo Right-handed white female.On 05/05/2022 she was admitted to [facility] with diagnosis Acute diastolic (congestive) heart failure (I50.31).Her impairment category is Cardiac 09 - Cardiac Disorders ().Pre-morbidly, Pt. was independent/mod-I in Locomotion, Safety A wareness, Social Cognition, Balance, Transfers Control, Self-Care, Sphincter Control, and Communicati on; and she had good Endurance.Currently, she has deficits of Locomotion, Balance, Transfers Control, Sphincter Control, Self-Care, and Endurance.Pt. is now referred to [facility] for acute in-patient rehabilitation in order to maximize patient's functional independence in activi ties of daily living, strength, ROM, and mobility.- Rehab Goal Patient has realistic goal of being discharged at assistance level Isela-to-sup to reside at Home with Family/Relatives. MDM/PLAN: - Physical Therapy Gait dysfunction - to improve, our physical therapists will perform initial evaluation of pt's statu s upon admission and devise an individualized program for Gait Training, and Wheel Chair mobility Inability to transfer - to improve, our physical therapists will perform initial evaluation of pt's status upon admission and devise an individualized program for Bed mobility Need for home safety evaluation - to improve, our physical therapists will perform initial evaluatio n of pt's status upon admission and devise an individualized program for Home Evaluation Need in caregiver upon discharge - to improve, our physical therapists will perform initial evaluati on of pt's status upon admission and devise an individualized program for Caregiver Training New precaution - to improve, our physical therapists will perform initial evaluation of pt's status upon admission and devise an individualized program for Patient precaution education Edema - to improve, our physical therapists will perform initial evaluation of pt's status upon admi ssion and devise an individualized program for Elevation Training, and Lymphedema Therapy Having wound - to improve, our physical therapists will perform initial evaluation of pt's status up on admission and devise an individualized program for Wound Care Poor balance - to improve, our physical therapists will perform initial evaluation of pt's status up on admission and devise an individualized program for Balance Training Poor endurance - to improve, our physical therapists will perform initial evaluation of pt's status upon admission and devise an individualized program for Endurance Training Weakness - to improve, our physical therapists will perform initial evaluation of pt's status upon a dmission and devise an individualized program for Aquatic Therapy, Neuromuscular Reeducation, and Str engthening Achieving independence - to improve, our physical therapists will perform initial evaluation of pt's status upon admission and devise an individualized program for Community Reintegration Activities - Occupational Therapy ADL deficits - to improve, our occupation therapists will perform initial evaluation of pt's status upon admission and devise an individualized program for Bathing, Bed mobility, Community Reintegratio n, Cooking, Dressing, Eating, Fine Motor Skills, Grooming, Homemaking, Kitchen Mobility, Laundry, Pat ient Education, Safety Awareness, Splinting - Positioning, Transfers(Toilet, Tub, Shower), and Wheel Chair Management Need for animal caretaker - to improve, our occupation therapists will perform initial evaluation of pt's status upon admission and devise an individualized program for Caregiver Training Weakness - to improve, our occupation therapists will perform initial evaluation of pt's status upon admission and devise an individualized program for Aquatic Therapy, Balance, Endurance, UE ROM, and UE strengthening - Other See attached MAR (Medication Administration Record) - Diet Type Continue Regular - Diet - Liquid Texture Continue Regular - Tube Feed Continue N/A - Diet - Solid Texture Continue Regular - Shower allowing shower FUNCTIONAL STATUS: UPDATED AT WEEKLY TEAM CONFERENCE - Bladder Same accident frequency: UNK - No information - Bowel Same accident frequency: UNK - No information - Walking Same score based on distance walked: 0(N/A) Same score based on distance walked: 1(<=50ft) - Wheelchair Same score based on distance traveled: 0(N/A) FUNCTIONAL STATUS: - Self-Care A. Eating Isela B. Grooming sup C. Bathing sup D. Dressing - Upper sup E. Dressing - Lower modA F. Toileting Helio - Sphincter Control G. Bladder control Isela H. Bowel control Ind - Transfers Control I. Bed/Chair/Wheelchair Helio J. Toilet Helio K. Tub/Shower sup - Locomotion L. Walk/Wheelchair (B) modA M. Stairs maxA - Communication N. Comprehension (B) Ind O. Expression (B) Ind - Social Cognition P. Social Interaction Ind Q. Problem Solving Isela R. Memory Isela - Endurance Poor - Balance Fair - Safety Awareness Fair QI SCORES: - Self-Care A. Eating 05-Setup or clean-up assistance B. Oral hygiene 05-Setup or clean-up assistance C. Toileting hygiene 02-Substantial/maximal assistance E. Shower/bathe self 02-Substantial/maximal assistance F. Upper body dressing 03-Partial/moderate assistance G. Lower body dressing 01-Dependent H. Putting on/taking off footwear 01-Dependent - Mobility A. Roll left and right 02-Substantial/maximal assistance B. Sit to lying 02-Substantial/maximal assistance C. Lying to sitting on side of bed 02-Substantial/maximal assistance D. Sit to stand 03-Partial/moderate assistance E. Chair/[id number] transfer 02-Substantial/maximal assistance F. Toilet transfer 02-Substantial/maximal assistance G. Car transfer 88-Not attempted due to medical condition or safety concerns I. Walk 10 feet 88-Not attempted due to medical condition or safety concerns J. Walk 50 feet with two turns 88-Not attempted due to medical condition or safety concerns K. Walk 150 feet 88-Not attempted due to medical condition or safety concerns L. Walking 10 feet on uneven surfaces 88-Not attempted due to medical condition or safety concerns M. 1 step (curb) 88-Not attempted due to medical condition or safety concerns N. 4 steps 88-Not attempted due to medical condition or safety concerns O. 12 steps 88-Not attempted due to medical condition or safety concerns P. Picking up object 88-Not attempted due to medical condition or safety concerns R. Wheel 50 feet with two turns S. Wheel 150 feet - Bladder and Bowel Bladder continence Bowel continence - Endurance Poor - Balance Poor - Safety Awareness Fair CURRENT FUNC. DEFICITS: Self-Care, Mobility, Endurance, Balance, and Safety Awareness SIGNATURE PANEL: (CDT)
[2022-05-20] MEDS: PROMETHAZINE-DM 5 ML OSYR PO PRN (20:24)
[2022-05-21] MEDS: METOPROLOL XL 25 MG TAB PO SCH (07:33)
[2022-05-21] MEDS: MUPIROCIN 2% OINT 22GM TUBE TOP SCH (07:33)
[2022-05-21] MEDS: MONTELUKAST 10 MG TAB PO SCH (07:33)
[2022-05-21] MEDS: ASCORBIC ACID 500 MG TABLET PO SCH ×2 (07:33→20:48)
[2022-05-21] MEDS: SPIRONOLACTONE 25 MG TABLET PO SCH ×2 (07:34→20:48)
[2022-05-21] MEDS: SMZ./TMP. 800/160 MG TABLET PO SCH ×2 (07:34→20:48)
[2022-05-21] MEDS: acetaZOLAMIDE 250 MG TAB PO SCH (07:35)
[2022-05-21] MEDS: FAMOTIDINE 20 MG TAB PO SCH (07:35)
[2022-05-21] MEDS: MULTIVIT W/ MINERAL TAB PO SCH (07:35)
[2022-05-21] MEDS: APIXABAN 5 MG TABLET PO SCH ×2 (07:35→20:48)
[2022-05-21] MEDS: GLUCERNA SHAKE 237 ML CAN PO SCH ×3 (07:35→16:54)
[2022-05-21] MEDS: CODEINE 30MG/APAP 300MG TAB PO PRN (09:44)
[2022-05-21] MEDS: ISOSORBIDE MONO SR 30 MG TAB PO SCH (12:25)
--- NOTE | 2022-05-21 17:45 | R.PN ---
PROGRESS NOTES ENCOUNTER DATE AND TIME: 05/21/2022 17:42 (CDT) NAME DEEPAK LEE DATE OF : 1950 DATE OF ADMISSION: 05/11/2022 00:12 (CDT) Acute diastolic (congestive) heart failure (I50.31)CHIEF COMPLAINT: Diastolic heart failure SUBJECTIVE: Pt denied any Shortness of Breath. Pt denied any depression. Bed mobility done with max assistance. O2 sat drops to 82% with physical exertion. Recovers to 92-94% with 2-3 minutes of rest. She has a positive and then negative covid-19 test. CBC with diff is remarkable for low Hgb of 9.9, CO2 has improved to 32, Quality Eng is elevated to 1.34. and prealbumin has improved to 12.5. Potassium elevated to 5.2. Results are consistent with dehydration. Will encourage 8 glasses of water daily. Chest x-ray shows mild bilateral pneumonia. She is followed by Dr. Becerril and is on Augmentin. Ambulated 26' with SBA using a rolling walker. Now off of isolation, past 10 days with last positive covid-19 test. VITAL SIGNS Temperature: 97.6 F SBP/DBP: 123/49 Pulse: 91 Resp: 16 MEDICATION ALLERGIES: No Known Drug Allergies (NKDA) ENVIRONMENTAL ALLERGIES: - Substance Allergies None Known - Other Allergies None Known NURSING: - Shower allowing shower ACTIVITIES OOB only with supervision THERAPIES: - Dietary and Nutrition Adequate Nutrition. Nutritional Education. Nutritional Supplements. - Occupational Therapy Cognitive Retraining. Patient needs Occupational Therapy for a daily minimum of 1.5 hours at least 5 out of 7 days, to improve Activities of Daily Living, including: Eating, Grooming, Bathing, Dressing, Toileting, Toilet Transfers, Community Reintegration, Higher functional activities, Adaptive Equipme nt, Splinting, Household Tasks, and Other activities as determined. Visual Perceptual Training. - Speech Therapy Cognitive Training. Expressive Language Skills. Memory Strategies. Patient needs Speech Therapy for a daily minimum of 0 hours at least 0 out of 0 days, to improve: Swallowing, Cognition, Language Skill s, and Compensatory Strategies. Receptive Language Skills. Speech Intelligibility Training. - Physical Therapy Patient needs Physical Therapy for a daily minimum of 1.5 hours at least 5 out of 7 days, to improve: Mobility, Strengthening, Transfers, Stretching, ROM, Endurance, Ability to manage stairs, Gait, and Balance. PHYSICAL EXAM - Gen Alert and awake Lying in bed No apparent distress Oriented to: person, time, and place - Skin Lower leg wound Normacephalic - Eyes No abnormalities - ENMT No abnormalities - Neck No abnormalities - CVS RRR - Chest Mildly decreased breath sounds bilaterally. - Resp Course lungs bilaterally - Abd + bowel sounds - GI Soft Deferred - No abnormalities - Ext No significant edema - MSK 4+/5 weakness in both lower extremities. - Neuro No focal deficits ASSESSMENT: Pt. is a 71 yo Right-handed white female.On 05/05/2022 she was admitted to [facility] with diagnosis Acute diastolic (congestive) heart failure (I50.31).Her impairment category is Cardiac 09 - Cardiac Disorders ().Pre-morbidly, Pt. was independent/mod-I in Locomotion, Safety A wareness, Social Cognition, Balance, Transfers Control, Self-Care, Sphincter Control, and Communicati on; and she had good Endurance.Currently, she has deficits of Locomotion, Balance, Transfers Control, Sphincter Control, Self-Care, and Endurance.Pt. is now referred to [facility] for acute in-patient rehabilitation in order to maximize patient's functional independence in activi ties of daily living, strength, ROM, and mobility.- Rehab Goal Patient has realistic goal of being discharged at assistance level Isela-to-sup to reside at Home with Family/Relatives. MDM/PLAN: - Physical Therapy Gait dysfunction - to improve, our physical therapists will perform initial evaluation of pt's statu s upon admission and devise an individualized program for Gait Training, and Wheel Chair mobility Inability to transfer - to improve, our physical therapists will perform initial evaluation of pt's status upon admission and devise an individualized program for Bed mobility Need for home safety evaluation - to improve, our physical therapists will perform initial evaluatio n of pt's status upon admission and devise an individualized program for Home Evaluation Need in caregiver upon discharge - to improve, our physical therapists will perform initial evaluati on of pt's status upon admission and devise an individualized program for Caregiver Training New precaution - to improve, our physical therapists will perform initial evaluation of pt's status upon admission and devise an individualized program for Patient precaution education Edema - to improve, our physical therapists will perform initial evaluation of pt's status upon admi ssion and devise an individualized program for Elevation Training, and Lymphedema Therapy Having wound - to improve, our physical therapists will perform initial evaluation of pt's status up on admission and devise an individualized program for Wound Care Poor balance - to improve, our physical therapists will perform initial evaluation of pt's status up on admission and devise an individualized program for Balance Training Poor endurance - to improve, our physical therapists will perform initial evaluation of pt's status upon admission and devise an individualized program for Endurance Training Weakness - to improve, our physical therapists will perform initial evaluation of pt's status upon a dmission and devise an individualized program for Aquatic Therapy, Neuromuscular Reeducation, and Str engthening Achieving independence - to improve, our physical therapists will perform initial evaluation of pt's status upon admission and devise an individualized program for Community Reintegration Activities - Occupational Therapy ADL deficits - to improve, our occupation therapists will perform initial evaluation of pt's status upon admission and devise an individualized program for Bathing, Bed mobility, Community Reintegratio n, Cooking, Dressing, Eating, Fine Motor Skills, Grooming, Homemaking, Kitchen Mobility, Laundry, Pat ient Education, Safety Awareness, Splinting - Positioning, Transfers(Toilet, Tub, Shower), and Wheel Chair Management Need for nursing care attendant - to improve, our occupation therapists will perform initial evaluation of pt's status upon admission and devise an individualized program for Caregiver Training Weakness - to improve, our occupation therapists will perform initial evaluation of pt's status upon admission and devise an individualized program for Aquatic Therapy, Balance, Endurance, UE ROM, and UE strengthening - Other See attached MAR (Medication Administration Record) - Diet Type Continue Regular - Diet - Liquid Texture Continue Regular - Tube Feed Continue N/A - Diet - Solid Texture Continue Regular - Shower allowing shower FUNCTIONAL STATUS: UPDATED AT WEEKLY TEAM CONFERENCE - Bladder Same accident frequency: UNK - No information - Bowel Same accident frequency: UNK - No information - Walking Same score based on distance walked: 0(N/A) Same score based on distance walked: 1(<=50ft) - Wheelchair Same score based on distance traveled: 0(N/A) FUNCTIONAL STATUS: - Self-Care A. Eating Isela B. Grooming sup C. Bathing sup D. Dressing - Upper sup E. Dressing - Lower modA F. Toileting Helio - Sphincter Control G. Bladder control Isela H. Bowel control Ind - Transfers Control I. Bed/Chair/Wheelchair Helio J. Toilet Helio K. Tub/Shower sup - Locomotion L. Walk/Wheelchair (B) modA M. Stairs maxA - Communication N. Comprehension (B) Ind O. Expression (B) Ind - Social Cognition P. Social Interaction Ind Q. Problem Solving Isela R. Memory Isela - Endurance Poor - Balance Fair - Safety Awareness Fair QI SCORES: - Self-Care A. Eating 05-Setup or clean-up assistance B. Oral hygiene 05-Setup or clean-up assistance C. Toileting hygiene 02-Substantial/maximal assistance E. Shower/bathe self 02-Substantial/maximal assistance F. Upper body dressing 03-Partial/moderate assistance G. Lower body dressing 01-Dependent H. Putting on/taking off footwear 01-Dependent - Mobility A. Roll left and right 02-Substantial/maximal assistance B. Sit to lying 02-Substantial/maximal assistance C. Lying to sitting on side of bed 02-Substantial/maximal assistance D. Sit to stand 03-Partial/moderate assistance E. Chair/[id number]-[id number] transfer 02-Substantial/maximal assistance F. Toilet transfer 02-Substantial/maximal assistance G. Car transfer 88-Not attempted due to medical condition or safety concerns I. Walk 10 feet 88-Not attempted due to medical condition or safety concerns J. Walk 50 feet with two turns 88-Not attempted due to medical condition or safety concerns K. Walk 150 feet 88-Not attempted due to medical condition or safety concerns L. Walking 10 feet on uneven surfaces 88-Not attempted due to medical condition or safety concerns M. 1 step (curb) 88-Not attempted due to medical condition or safety concerns N. 4 steps 88-Not attempted due to medical condition or safety concerns O. 12 steps 88-Not attempted due to medical condition or safety concerns P. Picking up object 88-Not attempted due to medical condition or safety concerns R. Wheel 50 feet with two turns S. Wheel 150 feet - Bladder and Bowel Bladder continence Bowel continence - Endurance Poor - Balance Poor - Safety Awareness Fair CURRENT FUNC. DEFICITS: Self-Care, Mobility, Endurance, Balance, and Safety Awareness SIGNATURE PANEL: (CDT)
[2022-05-21] MEDS: MAGNESIUM OXIDE 400 MG TAB PO SCH (20:48)
[2022-05-22 05:15] LABS: Absolute Lymphocytes (CBC) 1.2 K/uL (0.7-4.9); Hematocrit 29.9 % (36.0-45.0); Lymphocytes % 21.1 % (15.3-44.8); MCV 95.1 fL (80-100); MPV 7.8 fL (7.6-11.3); RBC Red Blood Cell Count 3.14 M/uL (3.86-4.86)
[2022-05-22 05:44] LABS: Potassium 5.6 mmol/L (3.5-5.1)
[2022-05-22] MEDS ORDERED: SOD POLYSTYREN SUL 15 GM/60 ML UCUP PO ONE (05:45)
[2022-05-22] MEDS: MUPIROCIN 2% OINT 22GM TUBE TOP SCH (07:37)
[2022-05-22] MEDS: ASCORBIC ACID 500 MG TABLET PO SCH ×2 (07:39→21:14)
[2022-05-22] MEDS: GLUCERNA SHAKE 237 ML CAN PO SCH ×3 (07:39→17:00)
[2022-05-22] MEDS: MULTIVIT W/ MINERAL TAB PO SCH (07:39)
[2022-05-22] MEDS: MONTELUKAST 10 MG TAB PO SCH (07:40)
[2022-05-22] MEDS: SMZ./TMP. 800/160 MG TABLET PO SCH ×2 (07:40→21:12)
[2022-05-22] MEDS: acetaZOLAMIDE 250 MG TAB PO SCH (07:40)
[2022-05-22] MEDS: APIXABAN 5 MG TABLET PO SCH ×2 (07:40→21:13)
[2022-05-22] MEDS: MAGNESIUM OXIDE 400 MG TAB PO SCH ×2 (07:40→21:13)
[2022-05-22] MEDS: FAMOTIDINE 20 MG TAB PO SCH (07:40)
[2022-05-22] MEDS: SPIRONOLACTONE 25 MG TABLET PO SCH ×2 (07:40→21:11)
[2022-05-22] MEDS: METOPROLOL XL 25 MG TAB PO SCH (07:41)
[2022-05-22] MEDS: NYSTATIN PWDR 100000 UNIT/GM TOP SCH ×3 (07:44→21:14)
[2022-05-22] MEDS: CODEINE 30MG/APAP 300MG TAB PO PRN (08:25)
[2022-05-22] MEDS: ISOSORBIDE MONO SR 30 MG TAB PO SCH (12:13)
[2022-05-22] MEDS ORDERED: MAGNESIUM CITRATE 300 ML BOT PO SCH (14:00)
[2022-05-22] MEDS: BISACODYL 10 MG RECTAL SUPP PR PRN (17:15)
--- OUTSIDE RECORDS SUMMARY | 2022-05-22 19:08 | XMS REPORT | Continuity of Care Document ---
:1950 Author Organization [facility] t Address [address] [place] [address] [address]. [address] [place] [address] Care Team Providers Name Role Phone Kiley Romero Attending Clinician Unavailable [id number] Attending Clinician Unavailable CLARISSE Attending Clinician Unavailable MD BELL ROBB Attending Clinician Unavailable Phillip HENSON, K Attending Clinician Unavailable Jovanny Romero Admitting Clinician Unavailable [id number] Admitting Clinician Unavailable CLARISSE Admitting Clinician Unavailable MD BELL ROBB Admitting Clinician Unavailable Payers Payer Name Policy Type Policy Number Effective Date Expiration Date S ource AETM AETM [id number] Problems This patient has no known problems. Allergies, Adverse Reactions, Alerts This patient has no known allergies or adverse reactions. Medications This patient has no known medications. Procedures This patient has no known procedures. Encounters Start End Encounter Admission Attending Care Care Encounter Source Date/Time Date/Time Type Type Clinicians Facility Department ID 2021-11-29 Outpatient 3 [facility] ENCPL STACY 2019 ENCPL 09:11:46 brittani 021 Kiley 2021-11-29 Outpatient 3 [facility] ENCPL STACY 2019 ENCPL 09:06:56 brittani 013Sagrario Cao 2021-11-29 Outpatient 3 [id number] ENCPL REF ENCPL 09:05:12 [id number] 2021-05-22 2021-05-30 Inpatient CLARISSE [facility] 064 [id number] Raphine 00:00:00 00:00:00 MANFRED Gale i 2019-06-01 2019-06-01 Ancillary CELINA Fisher [id number] 15:10:20 15:55:20 Visit Aditi Man [id number] [place] [id number] Professio [phone] nal 179 Building 2019-05-27 2019-05-27 Ancillary Phillip SDSILVANO [id number] 15:06:18 17:23:42 Visit Aditi Man [id number] [place] [id number] Professio [phone] [facility] 179 [facility] Results Test Description Test Time Test Comments Results Result Comments Source SARS-CoV-2 (COVID-19) RNA [Presence] in Respiratory sp ecimen by 2021-05-29 18:15:52 THIAGO with probe detection Test Item Value Reference Range Interpretation Comme nts SARS-CoV-2 (COVID-19) RNA [Presence] in Respiratory Not detected No t-Detected specimen by THIAGO with probe detection (test code = 72536-5) Whether patient is employed in a healthcare setting (test code = 00976-1) Whether the patient has symptoms related to condition of interest (test code = 03224-3) Patient was hospitalized because of this condition (test code = 71398-4) Whether the patient was admitted to intensive care unit (ICU) for condition of interest (test code = 95491-8) Whether patient resides in a congregate care setting (test code = 19939-7)
--- NOTE | 2022-05-22 19:12 | R.PN ---
PROGRESS NOTES ENCOUNTER DATE AND TIME: 05/22/2022 19:06 (CDT) NAME DEEPAK LEE DATE OF : 1950 DATE OF ADMISSION: 05/11/2022 00:12 (CDT) Acute diastolic (congestive) heart failure (I50.31)CHIEF COMPLAINT: Diastolic heart failure SUBJECTIVE: Pt denied any Shortness of Breath. Pt denied any depression. Bed mobility done with max assistance. O2 sat drops to 82% with physical exertion. Recovers to 92-94% with 2-3 minutes of rest. She has a positive and then negative covid-19 test. CBC with diff is remarkable for low Hgb of 9.8, CO2 has improved to 29, K+ increased to 5.6, Med Surg Rn is e levated to 1.56. and prealbumin has improved to 12.5. She received Kayexelate and mag citrate. Result s are consistent with dehydration. Will encourage 8 glasses of water daily. Chest x-ray shows mild bilateral pneumonia. She is followed by Dr. Becerril and is on Augmentin. Ambulated 35' with SBA using a rolling walker. Now off of isolation, past 10 days with last positive covid-19 test. VITAL SIGNS Temperature: 97.8 F SBP/DBP: 113/84 Pulse: 81 Resp: 16 MEDICATION ALLERGIES: No Known Drug Allergies (NKDA) ENVIRONMENTAL ALLERGIES: - Substance Allergies None Known - Other Allergies None Known NURSING: - Shower allowing shower ACTIVITIES OOB only with supervision THERAPIES: - Dietary and Nutrition Adequate Nutrition. Nutritional Education. Nutritional Supplements. - Occupational Therapy Cognitive Retraining. Patient needs Occupational Therapy for a daily minimum of 1.5 hours at least 5 out of 7 days, to improve Activities of Daily Living, including: Eating, Grooming, Bathing, Dressing, Toileting, Toilet Transfers, Community Reintegration, Higher functional activities, Adaptive Equipme nt, Splinting, Household Tasks, and Other activities as determined. Visual Perceptual Training. - Speech Therapy Cognitive Training. Expressive Language Skills. Memory Strategies. Patient needs Speech Therapy for a daily minimum of 0 hours at least 0 out of 0 days, to improve: Swallowing, Cognition, Language Skill s, and Compensatory Strategies. Receptive Language Skills. Speech Intelligibility Training. - Physical Therapy Patient needs Physical Therapy for a daily minimum of 1.5 hours at least 5 out of 7 days, to improve: Mobility, Strengthening, Transfers, Stretching, ROM, Endurance, Ability to manage stairs, Gait, and Balance. PHYSICAL EXAM - Gen Alert and awake Lying in bed No apparent distress Oriented to: person, time, and place - Skin Lower leg wound Normacephalic - Eyes No abnormalities - ENMT No abnormalities - Neck No abnormalities - CVS RRR - Chest Mildly decreased breath sounds bilaterally. - Resp Course lungs bilaterally - Abd + bowel sounds - GI Soft Deferred - No abnormalities - Ext No significant edema - MSK 4+/5 weakness in both lower extremities. - Neuro No focal deficits ASSESSMENT: Pt. is a 71 yo Right-handed white female.On 05/05/2022 she was admitted to [facility] with diagnosis Acute diastolic (congestive) heart failure (I50.31).Her impairment category is Cardiac 09 - Cardiac Disorders (09).Pre-morbidly, Pt. was independent/mod-I in Locomotion, Safety A wareness, Social Cognition, Balance, Transfers Control, Self-Care, Sphincter Control, and Communicati on; and she had good Endurance.Currently, she has deficits of Locomotion, Balance, Transfers Control, Sphincter Control, Self-Care, and Endurance.Pt. is now referred to [facility] for acute in-patient rehabilitation in order to maximize patient's functional independence in activi ties of daily living, strength, ROM, and mobility.- Rehab Goal Patient has realistic goal of being discharged at assistance level Isela-to-sup to reside at Home with Family/Relatives. MDM/PLAN: - Physical Therapy Gait dysfunction - to improve, our physical therapists will perform initial evaluation of pt's statu s upon admission and devise an individualized program for Gait Training, and Wheel Chair mobility Inability to transfer - to improve, our physical therapists will perform initial evaluation of pt's status upon admission and devise an individualized program for Bed mobility Need for home safety evaluation - to improve, our physical therapists will perform initial evaluatio n of pt's status upon admission and devise an individualized program for Home Evaluation Need in caregiver upon discharge - to improve, our physical therapists will perform initial evaluati on of pt's status upon admission and devise an individualized program for Caregiver Training New precaution - to improve, our physical therapists will perform initial evaluation of pt's status upon admission and devise an individualized program for Patient precaution education Edema - to improve, our physical therapists will perform initial evaluation of pt's status upon admi ssion and devise an individualized program for Elevation Training, and Lymphedema Therapy Having wound - to improve, our physical therapists will perform initial evaluation of pt's status up on admission and devise an individualized program for Wound Care Poor balance - to improve, our physical therapists will perform initial evaluation of pt's status up on admission and devise an individualized program for Balance Training Poor endurance - to improve, our physical therapists will perform initial evaluation of pt's status upon admission and devise an individualized program for Endurance Training Weakness - to improve, our physical therapists will perform initial evaluation of pt's status upon a dmission and devise an individualized program for Aquatic Therapy, Neuromuscular Reeducation, and Str engthening Achieving independence - to improve, our physical therapists will perform initial evaluation of pt's status upon admission and devise an individualized program for Community Reintegration Activities - Occupational Therapy ADL deficits - to improve, our occupation therapists will perform initial evaluation of pt's status upon admission and devise an individualized program for Bathing, Bed mobility, Community Reintegratio n, Cooking, Dressing, Eating, Fine Motor Skills, Grooming, Homemaking, Kitchen Mobility, Laundry, Pat ient Education, Safety Awareness, Splinting - Positioning, Transfers(Toilet, Tub, Shower), and Wheel Chair Management Need for ostomy care nurse - to improve, our occupation therapists will perform initial evaluation of pt's status upon admission and devise an individualized program for Caregiver Training Weakness - to improve, our occupation therapists will perform initial evaluation of pt's status upon admission and devise an individualized program for Aquatic Therapy, Balance, Endurance, UE ROM, and UE strengthening - Other See attached MAR (Medication Administration Record) - Diet Type Continue Regular - Diet - Liquid Texture Continue Regular - Tube Feed Continue N/A - Diet - Solid Texture Continue Regular - Shower allowing shower FUNCTIONAL STATUS: UPDATED AT WEEKLY TEAM CONFERENCE - Bladder Same accident frequency: UNK - No information - Bowel Same accident frequency: UNK - No information - Walking Same score based on distance walked: 0(N/A) Same score based on distance walked: 1(<=50ft) - Wheelchair Same score based on distance traveled: 0(N/A) FUNCTIONAL STATUS: - Self-Care A. Eating Isela B. Grooming sup C. Bathing sup D. Dressing - Upper sup E. Dressing - Lower modA F. Toileting Helio - Sphincter Control G. Bladder control Isela H. Bowel control Ind - Transfers Control I. Bed/Chair/Wheelchair Helio J. Toilet Helio K. Tub/Shower sup - Locomotion L. Walk/Wheelchair (B) modA M. Stairs maxA - Communication N. Comprehension (B) Ind O. Expression (B) Ind - Social Cognition P. Social Interaction Ind Q. Problem Solving Isela R. Memory Isela - Endurance Poor - Balance Fair - Safety Awareness Fair QI SCORES: - Self-Care A. Eating 05-Setup or clean-up assistance B. Oral hygiene 05-Setup or clean-up assistance C. Toileting hygiene 02-Substantial/maximal assistance E. Shower/bathe self 02-Substantial/maximal assistance F. Upper body dressing 03-Partial/moderate assistance G. Lower body dressing 01-Dependent H. Putting on/taking off footwear 01-Dependent - Mobility A. Roll left and right 02-Substantial/maximal assistance B. Sit to lying 02-Substantial/maximal assistance C. Lying to sitting on side of bed 02-Substantial/maximal assistance D. Sit to stand 03-Partial/moderate assistance E. Chair/[id number] transfer 02-Substantial/maximal assistance F. Toilet transfer 02-Substantial/maximal assistance G. Car transfer 88-Not attempted due to medical condition or safety concerns I. Walk 10 feet 88-Not attempted due to medical condition or safety concerns J. Walk 50 feet with two turns 88-Not attempted due to medical condition or safety concerns K. Walk 150 feet 88-Not attempted due to medical condition or safety concerns L. Walking 10 feet on uneven surfaces 88-Not attempted due to medical condition or safety concerns M. 1 step (curb) 88-Not attempted due to medical condition or safety concerns N. 4 steps 88-Not attempted due to medical condition or safety concerns O. 12 steps 88-Not attempted due to medical condition or safety concerns P. Picking up object 88-Not attempted due to medical condition or safety concerns R. Wheel 50 feet with two turns S. Wheel 150 feet - Bladder and Bowel Bladder continence Bowel continence - Endurance Poor - Balance Poor - Safety Awareness Fair CURRENT FUNC. DEFICITS: Self-Care, Mobility, Endurance, Balance, and Safety Awareness SIGNATURE PANEL: (CDT)
[2022-05-22 19:45] LABS: Potassium 5.5 mmol/L (3.5-5.1)
[2022-05-22] MEDS: DOCUSATE NA/SENNA CONC 1 TAB PO SCH ×2 (21:00→21:14)
[2022-05-22] MEDS ORDERED: NA CHLORIDE 0.9% 1,000 ML IV ONE (22:22)
[2022-05-23 06:38] LABS: Absolute Lymphocytes (CBC) 1.1 K/uL (0.7-4.9); Hematocrit 30.4 % (36.0-45.0); Lymphocytes % 19.5 % (15.3-44.8); MCV 94.5 fL (80-100); MPV 7.9 fL (7.6-11.3); RBC Red Blood Cell Count 3.21 M/uL (3.86-4.86)
[2022-05-23 06:51] LABS: Albumin 2.7 g/dL (3.4-5.0); Magnesium 2.3 mg/dL (1.8-2.4)
[2022-05-23 07:12] LABS: Potassium 5.9 mmol/L (3.5-5.1)
[2022-05-23] MEDS: SPIRONOLACTONE 25 MG TABLET PO SCH (07:44)
[2022-05-23] MEDS: APIXABAN 5 MG TABLET PO SCH ×2 (07:49→21:25)
[2022-05-23] MEDS: MUPIROCIN 2% OINT 22GM TUBE TOP SCH (08:00)
[2022-05-23] MEDS ORDERED: APIXABAN 5 MG TABLET PO SCH ×2 (08:00→20:00)
[2022-05-23] MEDS ORDERED: SOD POLYSTYREN SUL 15 GM/60 ML UCUP PO ONE ×2 (08:06→16:47)
[2022-05-23] MEDS ORDERED: FUROSEMIDE 20 MG TABLET PO ONE (09:06)
[2022-05-23] MEDS: ASCORBIC ACID 500 MG TABLET PO SCH ×2 (09:08→21:26)
[2022-05-23] MEDS: acetaZOLAMIDE 250 MG TAB PO SCH (09:08)
[2022-05-23] MEDS: SMZ./TMP. 800/160 MG TABLET PO SCH (09:08)
[2022-05-23] MEDS: MULTIVIT W/ MINERAL TAB PO SCH (09:08)
[2022-05-23] MEDS: MAGNESIUM OXIDE 400 MG TAB PO SCH ×2 (09:09→21:25)
[2022-05-23] MEDS: MONTELUKAST 10 MG TAB PO SCH (09:09)
[2022-05-23] MEDS: NYSTATIN PWDR 100000 UNIT/GM TOP SCH ×2 (09:10→21:26)
[2022-05-23] MEDS: METOPROLOL XL 25 MG TAB PO SCH (09:10)
[2022-05-23] MEDS: FAMOTIDINE 20 MG TAB PO SCH (09:10)
--- NOTE | 2022-05-23 09:49 | P.RH.PN ---
Vital Signs: Last Vital Signs Temp 97.4 F 05/23/22 06:53 Pulse 76 05/23/22 09:10 Resp 16 05/23/22 06:53 BP 120/68 05/23/22 09:10 Pulse Ox 95 05/23/22 06:53 Laboratory: Laboratory Last Values WBC 5.4 K/uL (4.3-10.9) 05/23/22 06:13 RBC 3.21 M/uL (3.86-4.86) L 05/23/22 06:13 Hgb 10.1 g/dL (12.0-15.0) L 05/23/22 06:13 Hct 30.4 % (36.0-45.0) L 05/23/22 06:13 MCV 94.5 fL (80-100) 05/23/22 06:13 MCH 31.3 pg (27.0-35.0) 05/23/22 06:13 MCHC 33.1 g/dL (32.0-36.0) 05/23/22 06:13 RDW 14.6 % (12.1-15.2) 05/23/22 06:13 Plt Count 214 K/uL (152-406) 05/23/22 06:13 MPV 7.9 fL (7.6-11.3) 05/23/22 06:13 Neutrophils % 60.6 % (41.7-73.7) 05/23/22 06:13 Lymphocytes % 19.5 % (15.3-44.8) 05/23/22 06:13 Monocytes % 12.3 % (3.3-12.3) 05/23/22 06:13 Eosinophils % 6.9 % (0-4.4) H 05/23/22 06:13 Basophils % 0.7 % (0-1.3) 05/23/22 06:13 Absolute Neutrophils 3.3 K/uL (1.8-8.0) 05/23/22 06:13 Absolute Lymphocytes 1.1 K/uL (0.7-4.9) 05/23/22 06:13 Absolute Monocytes 0.7 K/uL (0.1-1.3) 05/23/22 06:13 Absolute Eosinophils 0.4 K/uL (0-0.5) 05/23/22 06:13 Absolute Basophils 0.0 K/uL (0-0.5) 05/23/22 06:13 pH 7.44 (7.35-7.45) 05/11/22 15:41 pCO2 59.2 mmHG (35-45) H 05/11/22 15:41 pO2 45.7 mmHG (75-100) L 05/11/22 15:41 HCO3 39.7 mmol/L (22-28) H 05/11/22 15:41 Base Excess 14.6 mmol/L 05/11/22 15:41 Oxyhemoglobin 80.7 % (94-97) L 05/11/22 15:41 ABG O2 Sat (Measured) 82.9 % (92-98.5) L 05/11/22 15:41 ABG Carboxyhemoglobin 2.0 % (0-1.5) H 05/11/22 15:41 ABG Methemoglobin 0.7 % (0-1.5) 05/11/22 15:41 Other Total Hgb 11.9 g/dl (12-18) L 05/11/22 15:41 Inspired O2 21.0 % 05/11/22 15:41 Sodium 139 mmol/L (136-145) 05/23/22 06:13 Potassium 5.9 mmol/L (3.5-5.1) H* 05/23/22 06:13 Chloride 109 mmol/L (98-107) H 05/23/22 06:13 Carbon Dioxide 30 mmol/L (21-32) 05/23/22 06:13 Anion Gap 5.9 mEq/L (5.0-15.0) D 05/23/22 06:13 BUN 31 mg/dL (7-18) H 05/23/22 06:13 Creatinine 1.46 mg/dL (0.55-1.3) H 05/23/22 06:13 Est GFR (CKD-EPI) 38 ml/min (=/>90) L 05/23/22 06:13 Glucose 87 mg/dL (74-106) 05/23/22 06:13 Calcium 8.4 mg/dL (8.5-10.1) L 05/23/22 06:13 Magnesium 2.3 mg/dL (1.8-2.4) 05/23/22 06:13 Albumin 2.7 g/dL (3.4-5.0) L 05/23/22 06:13 Prealbumin 12.5 mg/dL (20-40) L 05/16/22 03:52 Urine Color Yellow (Yellow) 05/11/22 03:33 Urine Appearance Clear (Clear) 05/11/22 03:33 Urine pH 6.5 (5.0-7.0) 05/11/22 03:33 Ur Specific Brandon 1.015 (1.005-1.030) 05/11/22 03:33 Glucose (UA)(Auto) Negative (Negative) 05/11/22 03:33 Urine Ketones Negative (Negative) 05/11/22 03:33 Urine Blood Negative (Negative) 05/11/22 03:33 Urine Nitrite Negative (Negative) 05/11/22 03:33 Urine Bilirubin Negative (Negative) 05/11/22 03:33 Urine Urobilinogen 0.2 mg/dL (0.2-1.0) 05/11/22 03:33 Ur Leukocyte Esterase Negative (Negative) 05/11/22 03:33 Urine RBC <5 /HPF (NONE SEEN) 05/11/22 03:33 Urine WBC <5 /HPF (<5) 05/11/22 03:33 Ur Squamous Epith Cells 5-10 /HPF (NONE SEEN) H 05/11/22 03:33 Ur Urothelial Cells Cancelled 05/11/22 00:30 Calcium Oxalate Crystal Cancelled 05/11/22 00:30 Uric Acid Crystals Cancelled 05/11/22 00:30 Triple Phos Crystals Cancelled 05/11/22 00:30 Other Crystals Cancelled 05/11/22 00:30 Amorphous Sediment 1+ /HPF (NONE SEEN) 05/11/22 03:33 Glitter Cells Cancelled 05/11/22 00:30 Urine Bacteria 20-50 /HPF (<20) H 05/11/22 03:33 Hyaline Casts Cancelled 05/11/22 00:30 Fine Granular Casts Cancelled 05/11/22 00:30 Coarse Granular Casts Cancelled 05/11/22 00:30 Waxy Casts Cancelled 05/11/22 00:30 RBC Casts Cancelled 05/11/22 00:30 WBC Casts Cancelled 05/11/22 00:30 Urine Mucus 1+ /HPF (NONE SEEN) 05/11/22 03:33 Urine Other Cancelled 05/11/22 00:30 Urine Trichomonas Cancelled 05/11/22 00:30 Urine Yeast Cancelled 05/11/22 00:30 Ur Yeast w Hyphae Cancelled 05/11/22 00:30 Urine Yeast (Budding) Cancelled 05/11/22 00:30 Urine Sperm Cancelled 05/11/22 00:30 Urine Culture Reflexed Not needed 05/11/22 03:33 Urine Total Volume Cancelled 05/11/22 00:30 Urine Total Protein Negative (Negative) 05/11/22 03:33 SARS-CoV-2 Rap RNA(RT-PCR) Negative (NEGATIVE) 05/12/22 02:15 Weight: 380 lb 1.6 oz Wound Present: Yes Closed Surgical Incision Present: No Negative Pressure Wound Therapy Present: No Physician Update: Her K+, Hop Strainer and BUN are elevated while on aldactone. Will stop aldactone, give a 2nd liter or NS and Kayexalate with repeat BMP in the AM. May be ready for discharge in the AM. Bed mobility, sit to supine SBA, Sit to stand SBA, walked 26' CGA, WC 40' x2 SBA. Max assistance for lower body dressing, toileting, transfers mod assistance with 2 people. She is fearful. She will go to [facility] swing bed. Functional Improvement: Patient presents w/ increased apprehension toward Covid, however follows instruction well. Patient is progressing toward meeting short- term and long-term goals. Summary: Patient's care plan and director social goals have been reviewed and revised as necessary. Please see the Rehabilitation Signature page for all necessary signatures.
[2022-05-23] MEDS: ISOSORBIDE MONO SR 30 MG TAB PO SCH (12:10)
[2022-05-23] MEDS: NA CHLORIDE 0.9% 1,000 ML IV SCH ×2 (12:10→23:10)
[2022-05-23] MEDS: BISACODYL 10 MG RECTAL SUPP PR PRN (16:51)
[2022-05-23] MEDS: DOCUSATE NA/SENNA CONC 1 TAB PO SCH (21:26)
[2022-05-23 21:34] VITALS: O2SAT 97
[2022-05-24] MEDS: NA CHLORIDE 0.9% 1,000 ML IV SCH (06:14)
[2022-05-24 06:36] LABS: Potassium 5.5 mmol/L (3.5-5.1)
[2022-05-24] MEDS: ASCORBIC ACID 500 MG TABLET PO SCH (07:30)
[2022-05-24] MEDS: MONTELUKAST 10 MG TAB PO SCH (07:30)
[2022-05-24] MEDS: NYSTATIN PWDR 100000 UNIT/GM TOP SCH (07:30)
[2022-05-24] MEDS: APIXABAN 5 MG TABLET PO SCH (07:30)
[2022-05-24] MEDS: MUPIROCIN 2% OINT 22GM TUBE TOP SCH (07:31)
[2022-05-24] MEDS: MAGNESIUM OXIDE 400 MG TAB PO SCH (07:31)
[2022-05-24] MEDS: acetaZOLAMIDE 250 MG TAB PO SCH (07:31)
[2022-05-24] MEDS: MULTIVIT W/ MINERAL TAB PO SCH (07:31)
[2022-05-24] MEDS: METOPROLOL XL 25 MG TAB PO SCH (07:32)
[2022-05-24] MEDS: FAMOTIDINE 20 MG TAB PO SCH (07:32)
[2022-05-24 08:57] VITALS: TEMP 97.4
[2022-05-24 12:20] VITALS: BP 116/58
[2022-05-24] MEDS: ISOSORBIDE MONO SR 30 MG TAB PO SCH (12:21)
== END 2022-05-24 14:05 | disposition swing bed (61) | DRG 947 ==
LOC: 5TH 05-11 00:06
PROVIDERS: ADMIT Psychiatry & Neurology Neurology with Special Qualifications in Child Neurology; ATTEND Psychiatry & Neurology Neurology with Special Qualifications in Child Neurology
DX: R53.1 Weakness (principal); I50.31 Acute diastolic (congestive) heart failure; U07.1 COVID-19; J12.82 Pneumonia due to coronavirus disease 2019; J96.22 Acute and chronic respiratory failure with hypercapnia; J96.21 Acute and chronic respiratory failure with hypoxia; L03.119 Cellulitis of unspecified part of limb; E66.2 Morbid (severe) obesity with alveolar hypoventilation; Z68.44 Body mass index [BMI] 60.0-69.9, adult; I11.0 Hypertensive heart disease with heart failure; S81.809A Unspecified open wound, unspecified lower leg, initial encounter; I89.0 Lymphedema, not elsewhere classified; M19.90 Unspecified osteoarthritis, unspecified site; E87.6 Hypokalemia; E86.0 Dehydration; Z91.040 Latex allergy status
CPT/HCPCS: 36415; 71045; 80048; 81003; 81015; 82040; 82805; 83735; 84134; 85025; 87070; 87077; 87086; 87088; 87186; 87205; 93005; 94010; 97110; 97112; 97116; 97161; 97165; 97530; 97542; J7030; U0003